=== PATIENT | female | born 1930 | race Hispanic/Latino ===

== ENCOUNTER 2017-06-23 14:04 | Outpatient (CLI) | payer MEDICARE, OTHER | END 2017-06-23 14:05 | disposition home or self-care (01) | LOC: BICRAD 14:04 | PROVIDERS: ATTEND Specialist | DX: S89.92XA Unspecified injury of left lower leg, initial encounter (principal); M17.12 Unilateral primary osteoarthritis, left knee; M77.32 Calcaneal spur, left foot; I70.0 Atherosclerosis of aorta ==

== ENCOUNTER 2017-07-13 13:20 | Inpatient (IN) | payer MEDICARE, OTHER ==
[2017-07-13] MEDS ORDERED: Dextrose 5% in Water 1,000 ML IV PRN (13:54)
[2017-07-13] MEDS ORDERED: Dextrose 50% Abboject 50 ML SYRINGE IVP PRN (13:54)
--- NOTE | 2017-07-13 14:07 | HP ---
DATE OF ADMISSION: 07/13/2017 REASON FOR ADMISSION: Failed outpatient antibiotic for left lower extremity cellulitis. HISTORY OF PRESENT ILLNESS: This is a pleasant elderly female with a history of multiple medical pro blems to include hypertension, hyperlipidemia, and diabetes who presented several weeks ago with left lower extremity cellulitis. She was given 2 different rounds of antibiotics without improvement and therefore she is being admitted to the hospital for IV antibiotic. The patient denies any chest, ar m or back pain. She also denies any PND, orthopnea or palpitations. PAST MEDICAL HISTORY: 1. Hypertension. 2. Hyperlipidemia. 3. Diabetes. 4. She does have a history of a myocardial infarction roughly 5 years ago. PAST SURGICAL HISTORY: 1. History of section. 2. History of hysterectomy in 1962. ALLERGIES: None. MEDICATIONS: 1. Hydrochlorothiazide 25 mg every day. 2. Ramipril 10 mg every day. 3. Coreg 12.5 mg b.i.d. 4. Zetia 10 mg every day. 5. Hydralazine 25 mg t.i.d. 6. Sertraline 50 mg every night. 7. Atorvastatin 80 mg every night. 8. Lantus 30 units daily. 9. 70/30 20 units in the morning and then 70/30 15 units at p.m. FAMILY HISTORY: Noncontributory. SOCIAL HISTORY: She does not smoke or drink alcohol. REVIEW OF SYSTEMS: GENERAL: Admits to weakness and fatigue, no fever or chills. HEENT: No diplopia or amaurosis fugax. Denies sore throat or hoarseness.. CARDIOVASCULAR: No chest, arm or back pain. PULMONARY: No PE, cough, hemoptysis. GASTROINTESTINAL: No GI bleed, constipation, diarrhea. GENITOURINARY: No dysuria, nocturia, oliguria, polyuria. ENDOCRINE: No polyphagia, polydipsia or heat or cold intolerance. MUSCULOSKELETAL: Admits to arthralgias. No lupus or myopathy. NEURO: No history of TIA or seizure. All systems are negative. PHYSICAL EXAMINATION: GENERAL: Pleasant female who appears to be in no acute distress. VITAL SIGNS: Her blood pressure is 128/70, pulse 80, respirations 18, she is afebrile. NECK: Supple with no increased JVP or carotid bruit. Carotid had good upstroke, no thyromegaly. COR: Regular rate and rhythm. CHEST: Symmetrical. Clear to auscultation and percussion. ABDOMEN: Soft, nontender with normoactive bowel sounds. There is no bruit or organomegaly. EXTREMITIES: Left lower extremity is red, it is swollen. It has excoriation on it, it has got water blisters. She had 1-2+ edema. She had palpable pedal pulses. SKIN: There is no evidence of ulcer, lesion or rash. NEUROLOGIC: She is awake, alert, and oriented to person, place, and time. ASSESSMENT: 1. Left lower extremity cellulitis. 2. Rule out deep venous thrombosis. 3. Hypertension. 4. Hyperlipidemia. 5. Diabetes. 6. Depression. PLAN: 1. The patient will be admitted where IV medication will be initiated. 2. We will resume home medications. 3. We will get Wound Care to see the patient in consultation. 4. We will check a lower extremity venous Doppler. 5. We will check a wound culture CLIN APPLICATION SPECIALIST. The patient verbalized understanding. All questions answered to her satisfaction.
[2017-07-13 14:11] LABS: #Eosinphils 0.1 thou/uL (0.0-0.7); #Lymphocytes 1.7 thou/uL (1.20-3.40); #Monocytes 0.5 thou/uL (0.11-0.59); #Neutrophils 3.8 thou/uL (1.40-6.50); %Basophils 0.1 % (0.0-1.0); %Eosinophils 1.8 % (0.0-10.0); %Lymphocytes 28.1 % (21.0-51.0); %Monocytes 8.1 % (0.0-10.0); Hemoglobin 11.1 g/dL (12.0-16.0); Mean Corpuscular Hemoglobin 27.5 pg (27.0-31.0); Mean Corpuscular Volume 88.7 fl (81.0-99.0); Platelet Count 168 thou/uL (130-400); RBC Distribution Width 13.7 % (11.5-14.5); Red Blood Cell (RBC) Count 4.04 mill/uL (4.20-5.40); White Blood Cell (WBC) Count 6.1 thou/uL (4.8-10.8)
[2017-07-13 14:14] VITALS: BMI 29.4
[2017-07-13 14:17] LABS: Hemoglobin A1c 6.8 % (4.0-6.0)
[2017-07-13 14:34] LABS: ALT (SGPT) 30 U/L (8-55); AST (SGOT) 22 U/L (5-34); Albumin 3.3 g/dL (3.4-4.8); Alkaline Phosphatase 90 U/L (40-150); Anion Gap 8 mmol/L (10-20); BUN (Urea Nitrogen) 26 mg/dL (9.8-20.1); Bilirubin, Total 0.4 mg/dL (0.2-1.2); Calc. Creatinine Clearance 51 mL/min (70-130); Calcium 8.9 mg/dL (7.8-10.44); Carbon Dioxide 27 mmol/L (23-31); Chloride 111 mmol/L (98-107); Estimated GFR-MDRD 60; Globulin 2.5 g/dL (2.4-3.5); Glucose 248 mg/dL (83-110); Potassium 4.6 mmol/L (3.5-5.1); Protein, Total 5.8 g/dL (6.0-8.3); Sodium 141 mmol/L (136-145)
[2017-07-13] MEDS ORDERED: Prevnar 13-Val Conj/PF 0.5 ML SYRINGE IM ONE (14:45)
[2017-07-13] MEDS: Cefepime 2 GM, Syringe 2.5 ML in Sodium Chloride 0.9% 10 ML SLOW IVP SCH (15:11)
--- NOTE | 2017-07-13 16:01 | ULT ---
EXAM: LEFT LOWER EXTREMITY VENOUS ULTRASOUND WITH DOPPLER 07/13/17 HISTORY: Left lower extremity edema and pain. COMPARISON: None. TECHNIQUE: Reid scale, color flow, doppler imaging, with spectral waveform analysis performed in the left lower extremity venous system. FINDINGS: There is compressibility, presence of flow and augmentation in the common femoral vein, femoral vein and popliteal vein. There is flow in the greater saphenous vein, profunda vein, and posterior tibial vein. IMPRESSION: No evidence or thrombus in the left lower extremity deep venous system. POS: BINTA
[2017-07-13] MEDS: Insulin Regular 300 UNITS/3 ML VIAL SC PRN (16:44)
[2017-07-13] MEDS ORDERED: Ezetimibe 10 MG TAB PO SCH (21:00)
[2017-07-13] MEDS ORDERED: Carvedilol 6.25 MG TAB PO SCH (21:00)
[2017-07-13] MEDS: Insulin NPH/Reg Insulin Hm 300 UNITS/3 ML VIAL SC SCH (21:24)
[2017-07-14] MEDS: Cefepime 2 GM, Syringe 2.5 ML in Sodium Chloride 0.9% 10 ML SLOW IVP SCH ×2 (01:30→15:06)
[2017-07-14] MEDS: hydrALAZINE 25 MG TAB PO SCH ×3 (08:47→20:48)
[2017-07-14] MEDS: Carvedilol 25 MG TAB PO SCH ×2 (08:47→20:48)
[2017-07-14] MEDS: Hydrochlorothiazide 25 MG TAB PO SCH (08:47)
[2017-07-14] MEDS: Ramipril 5 MG CAP PO SCH (08:48)
[2017-07-14] MEDS: Enoxaparin Sodium 30 MG/0.3 ML SYRINGE SC SCH (08:49)
[2017-07-14] MEDS: Insulin NPH/Reg Insulin Hm 300 UNITS/3 ML VIAL SC SCH ×2 (10:18→21:00)
[2017-07-14] MEDS ORDERED: Diphenoxylate HCl/Atropine Tablet PO PRN (11:37)
[2017-07-14] MEDS ORDERED: Diphenoxylate HCl/Atropine Tablet PO SCH (11:45)
[2017-07-14] MEDS: Simvastatin 5 MG TAB PO SCH (20:48)
[2017-07-15] MEDS: Cefepime 2 GM, Syringe 2.5 ML in Sodium Chloride 0.9% 10 ML SLOW IVP SCH (03:19)
[2017-07-15 04:57] LABS: #Eosinphils 0.2 thou/uL (0.0-0.7); #Lymphocytes 1.7 thou/uL (1.20-3.40); #Monocytes 0.6 thou/uL (0.11-0.59); #Neutrophils 2.6 thou/uL (1.40-6.50); %Basophils 0.8 % (0.0-1.0); %Eosinophils 4.5 % (0.0-10.0); %Lymphocytes 33.2 % (21.0-51.0); %Monocytes 10.7 % (0.0-10.0); %Neutrophils 50.8 % (42.0-75.0); Hemoglobin 10.9 g/dL (12.0-16.0); Mean Corpuscular HGB CONC 31.3 g/dL (32.0-36.0); Mean Corpuscular Hemoglobin 27.2 pg (27.0-31.0); Mean Corpuscular Volume 86.8 fl (81.0-99.0); Mean Platelet Volume 9.1 fL (7.4-10.4); Platelet Count 145 thou/uL (130-400); RBC Distribution Width 13.8 % (11.5-14.5); Red Blood Cell (RBC) Count 4.02 mill/uL (4.20-5.40); White Blood Cell (WBC) Count 5.2 thou/uL (4.8-10.8)
[2017-07-15 05:15] LABS: Anion Gap 5 mmol/L (10-20); BUN (Urea Nitrogen) 23 mg/dL (9.8-20.1); Calc. Creatinine Clearance 57 mL/min (70-130); Calcium 8.9 mg/dL (7.8-10.44); Carbon Dioxide 33 mmol/L (23-31); Cardiac Risk 2.5 (Less than 4.5); Chloride 107 mmol/L (98-107); Cholesterol 110 mg/dl (< 200 Desired); Estimated GFR-MDRD 69; Glucose 155 mg/dL (83-110); HDL Cholesterol 44 mg/dL (>60 Neg Risk); LDL Cholesterol, Calculated 52 mg/dL; Potassium 4.5 mmol/L (3.5-5.1); Sodium 140 mmol/L (136-145); Triglycerides 72 mg/dL (Less than 150)
[2017-07-15] MEDS: Hydrochlorothiazide 25 MG TAB PO SCH (08:29)
[2017-07-15] MEDS: Enoxaparin Sodium 30 MG/0.3 ML SYRINGE SC SCH (08:29)
[2017-07-15] MEDS: Carvedilol 25 MG TAB PO SCH ×2 (08:29→19:50)
[2017-07-15] MEDS: hydrALAZINE 25 MG TAB PO SCH ×3 (08:29→19:49)
[2017-07-15] MEDS: Ramipril 5 MG CAP PO SCH (08:30)
--- NOTE | 2017-07-15 08:39 | PRG ---
DATE OF SERVICE: 07/15/2017 Tia Matthews, GINNY-Chana dictating for Dr. Sancho Elmore. SUBJECTIVE: The patient had a good night. Her diarrhea has slowed down a little bit. Her wound cul ture is pending. Her C. diff is negative. Upon evaluation, she is awake, alert, oriented to person, place, and time. OBJECTIVE: VITAL SIGNS: Her blood pressure is high at 180 this morning over 65, pulse 60, respirations 18. She is afebrile. NECK: Supple. No increased JVP or carotid bruit. Carotid had good upstroke with no thyromegaly. COR: Regular rate and rhythm. CHEST: Symmetrical. Clear to auscultation and percussion. ABDOMEN: Soft and nontender with normoactive bowel sounds. No bruit or organomegaly. EXTREMITIES: Left lower extremity is less red and less swollen. She had palpable pedal pulses. SKIN: There is no evidence of ulcers, lesions, or rash. NEUROLOGIC: She is awake, alert, and oriented to person, place, and time. IMPRESSION: 1. Lower extremity cellulitis. 2. Hypertension. 3. Diabetes. 4. Multiple medical problems. PLAN: We will go ahead and stop her IV antibiotics and place her on Bactrim-DS b.i.d. and we will wa it for the culture and hopefully if all are okay we will send home tomorrow. The patient verbalized understanding and all questions answered to her satisfaction.
[2017-07-15] MEDS: Sulfameth/Trimethoprim DS 800-160mg TAB PO SCH ×2 (09:52→19:50)
[2017-07-15] MEDS: Insulin NPH/Reg Insulin Hm 300 UNITS/3 ML VIAL SC SCH ×2 (09:52→21:46)
[2017-07-15] MEDS: Insulin Regular 300 UNITS/3 ML VIAL SC PRN (12:41)
[2017-07-15] MEDS: Simvastatin 5 MG TAB PO SCH (19:50)
[2017-07-16] MEDS ORDERED: cloNIDine 0.1 MG TAB PO PRN (01:10)
[2017-07-16] MEDS ORDERED: cloNIDine 0.1 MG TAB PO SCH (01:15)
[2017-07-16 04:18] VITALS: TEMP 98.1
[2017-07-16] MEDS: Insulin Regular 300 UNITS/3 ML VIAL SC PRN (05:59)
[2017-07-16 08:17] VITALS: BP 164/69
[2017-07-16] MEDS: Hydrochlorothiazide 25 MG TAB PO SCH (09:28)
[2017-07-16] MEDS: Carvedilol 25 MG TAB PO SCH (09:28)
[2017-07-16] MEDS: Sulfameth/Trimethoprim DS 800-160mg TAB PO SCH (09:28)
[2017-07-16] MEDS: hydrALAZINE 25 MG TAB PO SCH (09:28)
[2017-07-16] MEDS: Ramipril 5 MG CAP PO SCH (09:28)
[2017-07-16] MEDS: Enoxaparin Sodium 30 MG/0.3 ML SYRINGE SC SCH (09:28)
[2017-07-16] MEDS: Insulin NPH/Reg Insulin Hm 300 UNITS/3 ML VIAL SC SCH (09:29)
--- NOTE | 2017-07-16 13:11 | DIS ---
FINAL DIAGNOSES: 1. Lower extremity cellulitis. 2. Diarrhea. 3. Hypertension. 4. Hyperlipidemia. COMPLICATIONS: None. PROCEDURES: None. CONSULTANTS: None. HOSPITAL COURSE: This is a pleasant female who was seen in the office after she failed 2 rounds of a ntibiotics for lower extremity cellulitis. She was admitted to the hospital where IV antibiotics wer e initiated. She did have some diarrhea. Her medications were adjusted accordingly. A stool C. dif f was obtained which was unremarkable. She had a left lower extremity venous Doppler that wound up b eing normal as well. Her blood sugar remained good during the hospitalization; however, her blood pr essure was high at times and her medication again had to be readjusted. Her CBC was normal. Her CMP showed a slightly elevated BUN at 23. Her creatinine was 0.79. Her blood sugar again was 129-148. Her lipid profile was excellent with a triglyceride 72, cholesterol 110, LDL 52 and HDL 44. The pat ient progressed throughout the hospitalization. She had Wound Care to see the patient in consultatio n as well. Her wound improved. Her IV antibiotics were stopped and she was started on antibiotics b y mouth. It was felt she could go home on 07/16/2017. She was discharged home in stable condition. DIET: 1800 ADA diet. ACTIVITIES: As tolerated by the patient. DISCHARGE MEDICATIONS: 1. Bactrim-DS b.i.d. 2. Coreg 25 mg b.i.d. 3. Zocor was reduced to 5 mg at bedtime. 4. Vitamin D 50,000 unit once a week. 5. Ezetimibe 10 mg every day. 6. Apresoline 25 mg 4 times a day 7. Hydrochlorothiazide 25 mg every day. 8. Insulin Humulin 70/30 15 units in the evening and then 20 units in the morning. 9. Ramipril 10 mg daily. 10. Sertraline 50 mg every day. FOLLOWUP: She will follow up with Tia in 1 week or prior to that if she has any complication. All questions answered to the patient's satisfaction. Time spent with this patient after reviewing the chart and dictating was 30 minutes.
== END 2017-07-16 10:23 | disposition home health service (06) | DRG 603 ==
LOC: 2SW 13:20 → OBSVTOIN 07-14 14:53 → EEVIPCON 07-14 14:53 → T4-B 07-14 17:44
PROVIDERS: ADMIT Specialist; ATTEND Specialist
DX: L03.116 Cellulitis of left lower limb (principal); E11.65 Type 2 diabetes mellitus with hyperglycemia; E78.5 Hyperlipidemia, unspecified; I10 Essential (primary) hypertension; I25.2 Old myocardial infarction; Z79.4 Long term (current) use of insulin; F32.9 Major depressive disorder, single episode, unspecified
CPT/HCPCS: 36415; 36416; 80048; 80053; 80061; 83036; 85025; 87045; 87046; 87070; 87205; 87328; 87329; 87449; 87899; 90471; 90670; A4216; G0009; J0692; J1650; J1815

== ENCOUNTER 2017-08-20 15:29 | Outpatient (CLI) | payer MEDICARE, OTHER ==
--- NOTE | 2017-08-20 17:01 | ULT ---
RIGHT INGUINAL REGION SOFT TISSUE ULTRASOUND: 08/20/17 INDICATION: Groin hematoma. History of recent catheterization. FINDINGS: There is an abnormal ovoid low echogenicity focus of the right inguinal region, with a diameter sligh tly greater than 6 cm in greatest length. No significant interval flow. This is immediately adjacent traversing vasculature of the right inguinal region. A direct communication with the adjacent vascul ature is not delineated on the basis of this exam. Advance vasculature also demonstrates reduced flow which could relate to component of adjacent vascular thrombosis. IMPRESSION: There is an ovoid, mixed echogenicity, hypoechoic structure at the right inguinal region without sign ificant internal flow. This does reside adjacent to traversing vasculature. Primary considerations wo uld include hematoma or thrombosed pseudoaneurysm. Adjacent, traversing vasculature also reveals dimi nished flow which may relate to adjacent vascular thrombosis. Recommend clinical correlation, and bertha ging followup may also be obtained for continued assessment. POS: BINTA
== END 2017-08-20 15:30 | disposition home or self-care (01) ==
LOC: ULT 15:29
PROVIDERS: ATTEND Internal Medicine Cardiovascular Disease
DX: M79.81 Nontraumatic hematoma of soft tissue (principal)
CPT/HCPCS: 76999

== ENCOUNTER 2019-03-13 13:39 | Emergency (ER) | payer MEDICARE, OTHER ==
[2019-03-13 15:45] LABS: #Eosinphils 0.2 thou/uL (0.0-0.7); #Lymphocytes 1.4 thou/uL (1.20-3.40); #Monocytes 0.6 thou/uL (0.11-0.59); #Neutrophils 4.4 thou/uL (1.40-6.50); %Basophils 0.6 % (0.0-1.0); %Eosinophils 3.2 % (0.0-10.0); %Lymphocytes 20.9 % (21.0-51.0); %Neutrophils 66.3 % (42.0-75.0); Hemoglobin 11.2 g/dL (12.0-16.0); Mean Corpuscular HGB CONC 32.6 g/dL (32.0-36.0); Mean Corpuscular Hemoglobin 29.1 pg (27.0-31.0); Mean Corpuscular Volume 89.1 fL (78.0-98.0); Mean Platelet Volume 10.1 fL (7.4-10.4); Platelet Count 172 thou/uL (130-400); RBC Distribution Width 12.7 % (11.5-14.5); Red Blood Cell (RBC) Count 3.86 mill/uL (4.20-5.40); White Blood Cell (WBC) Count 6.6 thou/uL (4.8-10.8)
[2019-03-13 16:10] LABS: ALT (SGPT) 13 U/L (8-55); AST (SGOT) 15 U/L (5-34); Albumin 3.6 g/dL (3.4-4.8); Alkaline Phosphatase 129 U/L (40-110); Anion Gap 11 mmol/L (10-20); BUN (Urea Nitrogen) 21 mg/dL (9.8-20.1); Bilirubin, Total 0.7 mg/dL (0.2-1.2); Calc. Creatinine Clearance 0 mL/min (70-130); Calcium 8.9 mg/dL (7.8-10.44); Carbon Dioxide 24 mmol/L (23-31); Chloride 108 mmol/L (98-107); Estimated GFR-MDRD 53; Globulin 2.8 g/dL (2.4-3.5); Glucose 309 mg/dL (83-110); Potassium 4.4 mmol/L (3.5-5.1); Protein, Total 6.4 g/dL (6.0-8.3); Sodium 139 mmol/L (136-145)
--- NOTE | 2019-03-13 16:19 | RAD ---
Chest one view HISTORY: Chest pain. Leg swelling. COMPARISON: 07/29/2011. FINDINGS: Cardiac silhouette is magnified and enlarged. Pulmonary vasculature is slightly engorged wi th mild patchy bibasilar infiltrates and peripheral interstitial thickening. Possible mild atelectasis at the lateral aspect of the superior segment left lower lobe. Mediastinum is midline with postoperative changes and aortic calcification. No lobar consolidation or evidence of pneumothorax. equipment monitor phototypesetting leads overlie the chest. IMPRESSION: Cardiomegaly. Mild pulmonary vascular congestion. Mild linear scarring/atelectasis within the left lung.
[2019-03-13] MEDS ORDERED: Labetalol HCl 100 MG/20 ML VIAL ONE (16:23)
[2019-03-13] MEDS ORDERED: Insulin Regular 300 UNITS/3 ML VIAL ONE (18:17)
[2019-03-13] MEDS ORDERED: Furosemide 40 MG/4 ML VIAL ONE (18:17)
[2019-03-13] MEDS ORDERED: hydrALAZINE 25 MG TAB ONE (18:17)
--- NOTE | 2019-03-13 19:36 | ULT ---
EXAM: LEFT LOWER EXTREMITY VENOUS ULTRASOUND WITH DOPPLER: COMPARISON: 07/13/2017 HISTORY: Edema. TECHNIQUE: Grayscale, color flow, Doppler imaging and spectral waveform analysis performed left lower extremity FINDINGS: Limited evaluation of the common femoral vein and greater saphenous vein due to edema. There is compressibility, presence of flow and augmentation in the femoral vein and popliteal vein. T here does appear to be flow and augmentation in the common femoral vein. There is flow in the greater saphenous vein and profunda femoral vein. Flow in the posterior tibial vein. There is evidenc e of edema in the distal left lower extremity. IMPRESSION: 1. Limited evaluation. No definite deep vein thrombus. 2. Left lower extremity edema Transcribed Date/Time: 03/13/2019 8:00 PM
== END 2019-03-13 21:25 | disposition home or self-care (01) ==
LOC: ERS 13:39
DX: R60.0 Localized edema (principal); R06.02 Shortness of breath; I25.2 Old myocardial infarction; E11.9 Type 2 diabetes mellitus without complications; E78.5 Hyperlipidemia, unspecified; I10 Essential (primary) hypertension; Z79.82 Long term (current) use of aspirin; Z79.4 Long term (current) use of insulin; Z79.899 Other long term (current) drug therapy
CPT/HCPCS: 36415; 36416; 71045; 80053; 83880; 84484; 85025; 93005; 96374; 96375; J1815; J1940

== ENCOUNTER 2019-11-13 11:34 | Outpatient (CLI) | payer MEDICARE ==
--- NOTE | 2019-11-13 13:26 | ULT ---
ULTRASOUND ABDOMEN LIMITED: (RIGHT UPPER QUADRANT) DATE: 11/13/2019 HISTORY: 89-year-old female with right upper quadrant abdominal pain. At 1:23 PM 11/13/2019, Dr. Sheppard discussed the findings and recommendation by telephone with Dr. Sancho Elmore. FINDINGS: There is an approximately 2 x 1.5 x 2.5 cm moderately hypoechoic mass with irregular margins in the r egion of the pancreatic head. The common duct is dilated to caliber of 10 mm. No evidence of dilation of pancreatic duct. Hepatic size and echogenicity are normal. No hydronephrosis of right kidney. Gallbladder is not visualized, presumably surgically absent. 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 Recommend CT of abdomen with contr ast.
== END 2019-11-13 11:35 | disposition home or self-care (01) ==
LOC: BICULT 11:34
PROVIDERS: ATTEND Specialist
DX: R10.11 Right upper quadrant pain (principal); E11.65 Type 2 diabetes mellitus with hyperglycemia; I10 Essential (primary) hypertension
CPT/HCPCS: 36415; 76705; 80053; 80061; 82306; 83036; 84443; 85025

== ENCOUNTER 2019-12-20 10:20 | Outpatient (CLI) | payer MEDICARE ==
--- NOTE | 2019-12-20 13:30 | CT ---
Exam: Abdomen CT with and without contrast HISTORY: Abnormal ultrasound. Evaluate for a mass of the head of the pancreas. Epigastric pain. COMPARISON: None CORRELATION: Gallbladder ultrasound 11/13/2019 TECHNIQUE: Abdomen and pelvic CT is performed with and without contrast following urogram protocol. C oronal reformatted images are submitted for interpretation FINDINGS: Lung bases: Minimal scarring and atelectasis Heart: Normal heart size. No significant pericardial fluid. There are coronary calcifications. Aorta: Atherosclerosis. Mild luminal narrowing secondary to atherosclerotic disease. No aneurysm, dis section or periaortic fat stranding Liver: Appropriate enhancement. No enhancing masses. Spleen: Well-circumscribed hypodensities in the spleen, measuring 1.0 x 1.0 cm and 1.1 x 0.7 cm. Sugg estive subtle enhancement may represent small slightly complex splenic cysts versus splenic hemangiomas. Pancreas: Three-phase imaging of the pancreas does not demonstrate any obvious intraparenchymal solid or cystic masses. Adrenal glands: Symmetric enhancement Lymph nodes: No gastrohepatic, retrocrural or periportal lymphadenopathy Portal vein: Patent Gallbladder: Surgically absent gallbladder. Visualized common bile duct does not demonstrate any obvi ous abrupt change in the caliber of the lumen. No CT evidence of choledocholithiasis Kidneys: Noncontrast: Bilaterally no evidence of hydronephrosis or perinephric fat stranding Contrast: Symmetric enhancement on the arterial phase images. Delayed: Symmetric excretion and decompressed intrarenal collecting and extrarenal collecting systems . Note, neither ureter is completely visualized Mesentery: No mass, nephropathy, free air or free fluid Alimentary canal: Limited evaluation. Visualized alimentary canal has a normal appearance. No evidenc e of a small bowel obstruction. IMPRESSION: No evidence of a solid or cystic mass corresponding to the finding on recent ultrasound. There does n ot appear to be obvious mass at the head of the pancreas or the adjacent soft tissues. Transcribed Date/Time: 12/20/2019 1:37 PM
== END 2019-12-20 10:21 | disposition home or self-care (01) ==
LOC: SCSCT 10:20
PROVIDERS: ATTEND Specialist
DX: D49.0 Neoplasm of unspecified behavior of digestive system (principal)
CPT/HCPCS: 74170; 82565

== ENCOUNTER 2020-04-13 17:19 | Inpatient (IN) | payer MEDICARE ==
[2020-04-13 18:06] LABS: #Eosinphils 0.1 thou/uL (0.0-0.7); #Lymphocytes 1.3 thou/uL (1.20-3.40); #Monocytes 0.6 thou/uL (0.11-0.59); #Neutrophils 4.2 thou/uL (1.40-6.50); %Basophils 0.1 % (0.0-1.0); %Eosinophils 0.8 % (0.0-10.0); %Lymphocytes 20.7 % (21.0-51.0); %Monocytes 9.9 % (0.0-10.0); %Neutrophils 68.4 % (42.0-75.0); Hemoglobin 10.6 g/dL (12.0-16.0); Mean Corpuscular HGB CONC 31.7 g/dL (32.0-36.0); Mean Corpuscular Volume 85.1 fL (78.0-98.0); Mean Platelet Volume 9.4 fL (7.4-10.4); Platelet Count 259 thou/uL (130-400); RBC Distribution Width 13.2 % (11.5-14.5); Red Blood Cell (RBC) Count 3.92 mill/uL (4.20-5.40); White Blood Cell (WBC) Count 6.2 thou/uL (4.8-10.8)
[2020-04-13 18:27] LABS: ALT (SGPT) 13 U/L (8-55); AST (SGOT) 13 U/L (5-34); Alkaline Phosphatase 81 U/L (40-110); Anion Gap 13 mmol/L (10-20); BUN (Urea Nitrogen) 22 mg/dL (9.8-20.1); Bilirubin, Total 0.5 mg/dL (0.2-1.2); Calc. Creatinine Clearance 0 mL/min (70-130); Calcium 8.2 mg/dL (7.8-10.44); Carbon Dioxide 23 mmol/L (23-31); Chloride 111 mmol/L (98-107); Globulin 3.1 g/dL (2.4-3.5); Glucose 222 mg/dL (83-110); Potassium 3.5 mmol/L (3.5-5.1); Protein, Total 6.1 g/dL (6.0-8.3); Sodium 143 mmol/L (136-145)
--- NOTE | 2020-04-13 18:28 | RAD ---
EXAM: CHEST ONE VIEW HISTORY: Generalized weakness and stumbling gait. Intermittent left arm and neck pain. COMPARISON: 03/13/2019 FINDINGS: Cardiac silhouette is magnified by projection but does appear enlarged. Postoperative changes related to median sternotomy and likely CABG are again seen. Patchy parenchymal airspace opacities are seen in the right midlung zone and at each lung base. No pleural effusion is present. Vascular calcif ications are again seen in thoracic aorta. IMPRESSION: Patchy airspace opacities at each lung base and right midlung zone worrisome for multifocal pneumonia . Viral pneumonitis such as Covid 19 in the correct clinical scenario is a consideration.
[2020-04-13 18:49] LABS: CKMB 1.7 ng/mL (0-6.6)
[2020-04-13 19:26] LABS: Bacteria/HPF 4+ HPF (None Seen); Bilirubin Negative (Negative); Blood, Urine Negative (Negative); Clarity Turbid (Clear); Glucose, Urine (Dipstick) 30 mg/dL (Negative); Ketone, Urine Negative (Negative); Leukocyte 25 Leu/uL (Negative); Nitrite Negative (Negative); Protein, Urine (Dipstick) 100 mg/dL (Neg-Trace); RBC/HPF 0-3 HPF (0-3); Specific Gravity, Urine 1.013 (1.002-1.036); Squamous Epithelial 0-3 HPF (0-3); Urobilinogen Normal mg/dL (Less than 2); pH, Urine 5.5 (5.0-9.0)
[2020-04-13] MEDS ORDERED: cloNIDine 0.1 MG TAB ONE (19:27)
[2020-04-13] MEDS ORDERED: Aspirin Chewable 81 MG TAB ONE (19:27)
[2020-04-13] MEDS ORDERED: Acetaminophen/Codeine 30-300mg Tablet ONE (19:27)
--- NOTE | 2020-04-13 20:31 | ULT ---
EXAM: Left lower extremity venous Doppler HISTORY: Left lower extremity pain and swelling FINDINGS: Grayscale, color-flow, Doppler evaluation, spectral analysis of the left lower extremity venous struc tures is performed with 2-D imaging. The left common femoral, superficial femoral, popliteal, posterior tibial, proximal greater saphenous and profunda femoral veins are imaged. There is normal luminal compressibility, flow, and augmentation in the visualized deep venous structu res of the left lower extremity. IMPRESSION: No evidence of a deep vein thrombosis in the visualized deep venous structures left lower extremity.
[2020-04-13] MEDS ORDERED: Acetaminophen 325 MG TAB PO PRN (20:46)
[2020-04-13] MEDS ORDERED: Dextrose 50% Abboject 50 ML SYRINGE SLOW IVP PRN (20:50)
[2020-04-13] MEDS ORDERED: HumaLOG 300 UNITS/3 ML VIAL SC PRN (20:50)
[2020-04-13] MEDS ORDERED: Dextrose 5% in Water 1,000 ML IV PRN (20:50)
--- NOTE | 2020-04-13 20:52 | PDOC.HHP ---
Hospitalist HPI - History of Present Illness weakness History of Present Illness: This is a 89-year-old female patient with a history of coronary disease status post CABG, hypertension, diabetes mellitus who presents with ongoing weakness and chest discomfort for the past couple of weeks. Patient was in the room with her [id number] who provided most of the history. She was in the usual state of health when about a week to 2 ago she had a fall, likely mechanical. After that incident she has been having generalized weakness. Her [id number] notes that she noticed she had a bump on her head after the incident. About a week ago she did complain of pain in her neck with radiating down her a rm mainly on the left side with worsening weakness and chest discomfort. She denied any cough or wheezing however had intermittent slight shortness of breath. She also notes having swelling of her feet bilaterally but mainly on the left side. No fevers nausea vomiting diarrhea constipation. She notes numbness mainly on the left side of with pain on both sides of her neck. No focal motor deficits. At baseline she walks with a walker Decided to come to the ED for further evaluation. At presentation her BP was 183/75, pulse 71, respiratory rate 20 and saturating 98 on room air. Labs showed initial troponin of 0.039, no concerning is ST segment changes on EKG. UA not suggestive of UTI. BMP essentially within normal limits. Chest x-ray showed patchy airspace opacities at each lung base and right mid zone worrisome for interstitial pneumonia. Covid test is pending Hospitalist ROS - Review of Systems Constitutional: reports: weakness. denies: fever, chills, sweats Respiratory: reports: shortness of breath, SOB with excertion. denies: cough, dry, hemoptysis Gastrointestinal: denies: nausea, vomiting, abdominal pain, diarrhea Genitourinary: denies: dysuria, frequency, incontinence, hematuria Musculoskeletal: reports: neck pain, shoulder pain, arm pain Neurological: reports: numbness. denies: weakness, incoordination, change in speech All other systems reviewed; all pertinent +/- noted in HPI/Subj - Medication Medications: Medications: Currently refer to ambulatory order list Allergies: No known drug allergies Hospitalist History - Past Medical History Cardiac: reports: CAD, HTN Endocrine: reports: Diabetes - Past Surgical History Past Surgical History: reports: CABG - Family History Family History: reports: diabetes mellitus - Social History Smoking Status: Never smoker Alcohol: reports: None Living Situation: With Family Activity level: uses cane/walker - Exam General Appearance: awake alert General - other findings: No acute distress Eye: PERRL, anicteric sclera ENT: normocephalic atraumatic Neck: supple, symmetric, no JVD, no thyromegaly Heart: RRR, no murmur, no gallops, no rubs Respiratory: CTAB, no wheezes, no rales, no ronchi Gastrointestinal: soft, non-tender, non-distended, normal bowel sounds Extremities: no cyanosis, no clubbing, no edema Extremities - other findings: Left leg swelling compared to right Neurological: cranial nerve grossly intact, no weakness Musculoskeletal: normal tone, no muscle wasting Psychiatric: normal affect, normal behavior, A&O x 3 Hospitalist Results - Labs Result Diagrams: 04/14/20 07:19 04/14/20 07:19 Lab results: WBC 6.2 thou/uL (4.8-10.8) 04/13/20 17:53 Hgb 10.6 g/dL (12.0-16.0) L 04/13/20 17:53 Hct 33.3 % (36.0-47.0) L 04/13/20 17:53 MCV 85.1 fL (78.0-98.0) 04/13/20 17:53 Plt Count 259 thou/uL (130-400) 04/13/20 17:53 Neutrophils % 68.4 % (42.0-75.0) 04/13/20 17:53 Sodium 143 mmol/L (136-145) 04/13/20 17:53 Potassium 3.5 mmol/L (3.5-5.1) 04/13/20 17:53 Chloride 111 mmol/L (98-107) H 04/13/20 17:53 Carbon Dioxide 23 mmol/L (23-31) 04/13/20 17:53 BUN 22 mg/dL (9.8-20.1) H 04/13/20 17:53 Creatinine 1.10 mg/dL (0.6-1.1) 04/13/20 17:53 Glucose 222 mg/dL (83-110) H 04/13/20 17:53 Calcium 8.2 mg/dL (7.8-10.44) 04/13/20 17:53 Total Bilirubin 0.5 mg/dL (0.2-1.2) 04/13/20 17:53 AST 13 U/L (5-34) 04/13/20 17:53 ALT 13 U/L (8-55) 04/13/20 17:53 Alkaline Phosphatase 81 U/L (40-110) 04/13/20 17:53 CK-MB (CK-2) 1.7 ng/mL (0-6.6) 04/13/20 17:53 Troponin I 0.039 ng/mL (< 0.028) H 04/13/20 17:53 Serum Total Protein 6.1 g/dL (6.0-8.3) 04/13/20 17:53 Albumin 3.0 g/dL (3.4-4.8) L 04/13/20 17:53 Urine Ketones Negative mg/dL (Negative) 04/13/20 19:05 Urine Blood Negative (Negative) 04/13/20 19:05 Urine Nitrite Negative (Negative) 04/13/20 19:05 Ur Leukocyte Esterase 25 Triston/uL (Negative) A 04/13/20 19:05 Urine RBC 0-3 HPF (0-3) 04/13/20 19:05 Urine WBC 7-10 HPF (0-3) A 04/13/20 19:05 Ur Squamous Epith Cells 0-3 HPF (0-3) 04/13/20 19:05 Urine Bacteria 4+ HPF (None Seen) A 04/13/20 19:05 Hospitalist H&P A/P - Plan Plan: This is an 89-year-old male patient with a history of coronary disease status post CABG, diabetes, hypertension presenting with worsening weakness and chest discomfort for the past couple of weeks. Initial evaluation concerning for possible ACS however also concerns for Covid. NSTEMI With chest discomfort with history of diabetes hypertension and CAD status post Elevated troponin initially 0.039we will trend Given aspirincontinue, start Lovenox N.p.o. overnight Cardiology consult in a.m. Hypertensive emergency Systolic blood pressure elevates to over 200 with chest discomfort and elevated troponin Started on clonidine with mild improvement Restart home blood pressure medications Start IV antihypertensive if BP remains elevated Left upper limb numbness Numbness and pain radiating from neck History of recent fallwe will do CT neck and head Recent fall Likely mechanical CT head and neck to rule out any acute events. Fall precautions PT a.m. Monitor on telemetry Diabetes mellitus Start correctional insulin Monitor glucose Coronary disease Resume home medications once verified. CODE STATUSfull code DVT prophylaxisLovenox Dispositionpending improvement
[2020-04-13] MEDS ORDERED: Enoxaparin Sodium 40 MG/0.4 ML SYRINGE SC SCH (21:00)
[2020-04-13] MEDS ORDERED: Simvastatin 5 MG TAB PO SCH (21:00)
[2020-04-13] MEDS ORDERED: Carvedilol 25 MG TAB PO SCH (21:00)
[2020-04-13] MEDS ORDERED: hydrALAZINE 20 MG/ML VIAL SLOW IVP PRN (21:59)
[2020-04-13] MEDS ORDERED: Labetalol HCl 100 MG/20 ML VIAL SLOW IVP PRN (21:59)
[2020-04-13 22:05] LABS: Troponin I 0.051 ng/mL (< 0.028)
[2020-04-13] MEDS ORDERED: Enoxaparin Sodium 30 MG/0.3 ML SYRINGE ONE (22:28)
[2020-04-14 00:35] LABS: Troponin I 0.061 ng/mL (< 0.028)
[2020-04-14 01:56] LABS: SARS-CoV-2 MS2 Positive; SARS-CoV-2 N Gene Positive; SARS-CoV-2 S Gene Positive; SARS-CoV-2 by NAA DETECTED (NotDetected); SARS-CoV-2 orf1ab Positive
[2020-04-14 07:39] LABS: #Eosinphils 0.1 thou/uL (0.0-0.7); #Monocytes 0.5 thou/uL (0.11-0.59); #Neutrophils 3.6 thou/uL (1.40-6.50); %Basophils 0.2 % (0.0-1.0); %Eosinophils 1.3 % (0.0-10.0); %Lymphocytes 18.6 % (21.0-51.0); %Monocytes 9.4 % (0.0-10.0); %Neutrophils 70.5 % (42.0-75.0); Hemoglobin 11.1 g/dL (12.0-16.0); Mean Corpuscular Hemoglobin 27.3 pg (27.0-31.0); Mean Corpuscular Volume 85.2 fL (78.0-98.0); Mean Platelet Volume 9.5 fL (7.4-10.4); Platelet Count 262 thou/uL (130-400); RBC Distribution Width 13.4 % (11.5-14.5); Red Blood Cell (RBC) Count 4.07 mill/uL (4.20-5.40); White Blood Cell (WBC) Count 5.1 thou/uL (4.8-10.8)
--- NOTE | 2020-04-14 07:45 | CT ---
PRELIMINARY REPORT/DIRECT RADIOLOGY/EMERGENCY AFTER HOURS PORCEDURE: Receipt of this report by the clinical staff was confirmed with Tan Chester by Adelfo Talbert Apr 14, 2020 07:31:00 [employer]IL [employer]ISH[employer]ACHINE. Addendum electronically signed by Adelfo Talbert on April 14, 2020 7:32:18 AM SAIL FINISHER MACHINE Addendum: There is some nonspecific nodularity noted in the right lung apex which is probably inflamm atory or postinflammatory in nature. Clinical correlation and follow-up chest imaging of some kind is recommended. Addendum electronically signed by Kvng Spear MD on April 14, 2020 7:22:23 AM SAIL FINISHER MACHINE EXAM: CT Head and Cervical Spine Without IV contrast. CLINICAL HISTORY: Fall 1-2 WEEKS AGO , right arm paresthesia TECHNIQUE: Axial computed tomography images were acquired of the head and the cervical spine without intravenous contrast. Sagittal and coronal reformatted images were obtained of the cervical spine. COMPARISON: None provided. FINDINGS: BRAIN: No acute intraparenchymal hemorrhage. No mass lesion. No CT evidence for acute territorial inf arct. No midline shift or extra-axial collection. Some age-appropriate senescent changes. VENTRICLES No hydrocephalus. ORBITS The orbits are unremarkable. SINUSES AND MASTOIDS The paranasal sinuses and mastoid air cells are clear. SOFT TISSUES No significant facial or scalp soft tissue swelling evident. No radiopaque foreign body is seen. BONES No acute osseous pathology evident. No acute fracture is evident on images of the head or cervi randy spine. DISKS/DEGENERATIVE CHANGES Diffuse spondylotic changes are noted. No ACUTE canal or foraminal compro mise. Posterior cervical spine vertebral body alignment is within normal limits. IMPRESSION: 1. No acute intracranial findings. No acute intracranial injury evident. 2. No cervical spine fracture evident. ELECTRONICALLY SIGNED BY: Kvng Spear MD Apr 14, 2020 6:53:45 AM SAIL FINISHER MACHINE FINAL REPORT CT CERVICAL SPINE NONCONTRAST: DATE: 04/14/2020. TIME: Performed on emergency basis at 0626 hours. HISTORY: Fall. Injury.. FINDINGS: Agree with the addended report by Dr. Spear from direct radiology. There are degenerative changes thro ughout the cervical spine without acute osseous abnormality demonstrated. Old incompletely healed fracture of the posterior aspect of the left second rib is noted. Nodular inf iltrate is partially visualized at the right lung apex and could represent active or residual inflammation or chronic scarring. Correlate with pulmonary symptoms. Transcribed Date/Time: 04/14/2020 8:20 AM
--- NOTE | 2020-04-14 07:47 | CT ---
PRELIMINARY REPORT/DIRECT RADIOLOGY/EMERGENCY AFTER HOURS PROCEDURE: Receipt of this report by the clinical staff was confirmed with Tan Chester by Adelfo Talbert Apr 14, 2020 07:31:00 ROUTE AIDE. Addendum electronically signed by Adelfo Talbert on April 14, 2020 7:32:18 AM ROUTE AIDE. Addendum: There is some nonspecific nodularity noted in the right lung apex whi ch is probably inflammatory or postinflammatory in nature. Clinical correlation and follow-up chest imaging of some kind is recommended. Addendum electronically signed by Kvng Spear MD on 2020 7:22:23 AM ROUTE AIDE EXAM: CT Head and Cervical Spine Without IV contrast. CLINICAL HISTORY: Fall 1-2 WEEKS AGO , right arm paresthesia TECHNIQUE: Axial computed tomography images were acquired of the head and the cervical spine without intravenous contrast. Sagittal and coronal reformatted images were obtained of the cervical spine. COMPARISON: None provided. FINDINGS: BRAIN: No acute intraparenchymal hemorrhage. No mass lesion. No CT evidence for acute territorial inf arct. No midline shift or extra-axial collection. Some age-appropriate senescent changes. VENTRICLES No hydrocephalus. ORBITS The orbits are unremarkable. SINUSES AND MASTOIDS The paranasal sinuses and mastoid air cells are clear. SOFT TISSUES No significant facial or scalp soft tissue swelling evident. No radiopaque foreign body is seen. BONES No acute osseous pathology evident. No acute fracture is evident on images of the head or cervi randy spine. DISKS/DEGENERATIVE CHANGES Diffuse spondylotic changes are noted. No ACUTE canal or foraminal compro mise. Posterior cervical spine vertebral body alignment is within normal limits. IMPRESSION: 1. No acute intracranial findings. No acute intracranial injury evident. 2. No cervical spine fracture evident. ELECTRONICALLY SIGNED BY: Kvng Spear MD Apr 14, 2020 6:53:45 AM ROUTE AIDE FINAL REPORT CT HEAD NONCONTRAST: DATE: 04/14/2020. TIME: Performed on emergency basis at 0627 hours. HISTORY: Fall. Head injury. FINDINGS: I agree with the preliminary report by Dr. Spear from direct radiology. No acute intracranial abnormal ities are demonstrated. 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 Transcribed Date/Time: 04/14/2020 8:24 AM
[2020-04-14 07:49] LABS: Anion Gap 14 mmol/L (10-20); BUN (Urea Nitrogen) 17 mg/dL (9.8-20.1); Calc. Creatinine Clearance 0 mL/min (70-130); Calcium 8.2 mg/dL (7.8-10.44); Carbon Dioxide 24 mmol/L (23-31); Chloride 112 mmol/L (98-107); Glucose 106 mg/dL (83-110); Potassium 3.5 mmol/L (3.5-5.1); Sodium 146 mmol/L (136-145)
[2020-04-14] MEDS ORDERED: Ondansetron PF 4 MG/2 ML Vial IVP PRN (08:51)
[2020-04-14] MEDS ORDERED: Ondansetron ODT 4 MG TAB PO PRN (08:51)
[2020-04-14] MEDS ORDERED: Enoxaparin Sodium 40 MG/0.4 ML SYRINGE SC SCH (09:00)
[2020-04-14] MEDS ORDERED: Ramipril 5 MG CAP PO SCH (09:00)
[2020-04-14] MEDS: Enoxaparin Sodium 30 MG/0.3 ML SYRINGE SC SCH ×2 (10:30→10:36)
[2020-04-14] MEDS ORDERED: Aspirin Chewable 81 MG TAB ONE (10:32)
[2020-04-14] MEDS ORDERED: Enoxaparin Sodium 30 MG/0.3 ML SYRINGE ONE (10:32)
[2020-04-14] MEDS ORDERED: Ondansetron ODT 4 MG TAB ONE (10:35)
[2020-04-14] MEDS: Aspirin 81 mg Enteric Coated Tablet PO SCH (10:36)
[2020-04-14] MEDS ORDERED: NS 0.9% w/ 20 MEQ KCL 1,000 ML/1,000 ML BAG IV SCH (11:15)
--- NOTE | 2020-04-14 11:57 | CT ---
CT arteriogram chest with IV contrast and 3-D imaging HISTORY: Dyspnea. Chest pain. COVID positive. FINDINGS: There is good contrast opacification pulmonary arteries and thoracic aorta with normal bran mari of the great vessels at the aortic arch. Prominent calcification throughout the arterial structures. Scattered throughout each lung are small predominantly peripheral groundglass foci of parenchymal inf iltrate with mild associated interstitial thickening. No pleural fluid or mediastinal adenopathy evident. Calcified granulomata of the liver and spleen are consistent with healed renal masses disease. Small hiatal hernia. Mildly displaced acute appearing fracture of the anterolateral aspect of left rib 5. Prominent degene rative changes thoracic spine. IMPRESSION : No evidence of pulmonary embolus. Prominent widespread bilateral infiltrates with the appearance of COVID pneumonitis. Left fifth rib fracture with an acute appearance.
[2020-04-14] MEDS: Carvedilol 25 MG TAB PO SCH ×2 (13:48→18:36)
[2020-04-14] MEDS ORDERED: HumaLOG 300 UNITS/3 ML VIAL SC PRN (15:13)
[2020-04-14] MEDS ORDERED: Furosemide 20 MG TAB PO PRN (15:18)
--- NOTE | 2020-04-14 19:17 | PDOC.HOSPP ---
- Subjective Encounter Date: 04/14/20 Encounter Time: 15:00 Subjective: Patient seen and examined for chest discomfort which is resolved. Denies any nausea, vomiting or diaphoresis. No fever or chills reported. - Objective Vital Signs & Weight: Vital Signs (12 hours) BP 04/14/20 13:48 146/60 H Weight Weight 6.42 oz Result Diagrams: 04/14/20 07:19 04/14/20 07:19 Additional Labs: Abnormal Lab Results - Last 48 hrs 04/13/20 17:53: Chloride 111 H, BUN 22 H, Albumin 3.0 L, Albumin/Globulin Ratio 1.0 L 04/13/20 17:53: Troponin I 0.039 H 04/13/20 17:53: RBC 3.92 L, Hgb 10.6 L, Hct 33.3 L, MCHC 31.7 L, Lymphocytes % 20.7 L, Monocytes # 0.6 H 04/13/20 19:05: Urine Clarity Turbid A, Urine Protein 100 A, Ur Leukocyte Est erase 25 A, Urine WBC 7-10 A, Urine Bacteria 4+ A 04/13/20 20:52: SARS-CoV-2 (PCR) DETECTED A* 04/13/20 21:19: Troponin I 0.051 H 04/14/20 00:00: Troponin I 0.061 H 04/14/20 07:19: Sodium 146 H, Chloride 112 H 04/14/20 07:19: RBC 4.07 L, Hgb 11.1 L, Hct 34.7 L, Lymphocytes % 18.6 L, Lymphocytes # 1.0 L Microbiology - Entire Visit 04/13/20 19:05 Urine voided Urine Culture - Preliminary Presumptive Escherichia coli Radiology Reviewed by me: Yes (CT angiogram of the chestCOVID-19 pneumonia) EKG Reviewed by me: Yes (Sinus rhythm on telemetry) Hospitalist ROS - Review of Systems Cardiovascular: denies: chest pain, palpitations, orthopnea, paroxysmal noc. dyspnea, edema, light headedness, other Gastrointestinal: denies: nausea, vomiting, abdominal pain, diarrhea, cons tipation, melena, hematochezia, other - Medication Medications: Active Medications Generic Name Dose Route Start Last Admin Trade Name Freq PRN Reason Stop Dose Admin Aspirin 81 mg 04/14/20 09:00 04/14/20 10:36 Aspirin 81 Mg Enteric Coated Tablet PO 81 mg DAILY HOLLAND Administration Carvedilol 25 mg 04/14/20 08:00 04/14/20 18:36 Carvedilol 25 Mg Tab PO 25 mg BID-WM HOLLAND Administration Potassium Chloride/Sodium Chloride 1,000 ml in 1,000 mls @ 75 mls/hr 04/14/20 11:15 04/14/20 14:52 Ns 0.9% W/ 20 Meq Kcl IV 04/15/20 00:34 1,000 mls .[id number] HOLLAND Administration Ondansetron HCl 4 mg 04/14/20 08:51 04/14/20 10:35 Ondansetron Odt 4 Mg Tab PO 4 mg Q6H PRN Administration Nausea/Vomiting - Exam General Appearance: NAD Neck: supple, no JVD Heart: RRR, no gallops, no rubs, normal peripheral pulses Respiratory: no wheezes, no rales, normal chest expansion, no tachypnea, rhonchi Gastrointestinal: soft, non-tender, normal bowel sounds, no guarding, no rigidity Extremities: no cyanosis, no clubbing, no edema Neurological: no new deficit Psychiatric: normal affect, A&O x 3 Hosp A/P - Plan DVT proph w/SCDs Chest discomfort with indeterminate troponins COVID-19 pneumoniapatient is on room air E. coli UTIPOA Coronary artery disease s/p CABG Hypertensive urgency Diabetes mellitus type 2 Recent fall with left fifth rib fracture Plan: IV ceftriaxone for UTI. Await cardiology input. Continue aspirin. I have froilan ified all the home medications with the family over the phone. Will resume clonidine and carvedilol. Resume PPIs. Change Lovenox to 30 mg once a day. Restart statins. Continue sliding scale. DC once cleared by cardiology
[2020-04-14] MEDS ORDERED: cloNIDine 0.1 MG TAB PO SCH (21:00)
[2020-04-14] MEDS ORDERED: cefTRIAXone\\ROCEPHIN 1 GM VIAL ONE (22:25)
[2020-04-14] MEDS ORDERED: cloNIDine 0.1 MG TAB ONE (22:25)
[2020-04-14] MEDS: cefTRIAXone\\ROCEPHIN 1 GM in Sodium Chloride 0.9% 100 ML IVPB SCH (22:36)
[2020-04-14] MEDS: Atorvastatin Calcium 40 MG TAB PO SCH (22:36)
[2020-04-14] MEDS: cloNIDine 0.1 MG TAB PO SCH (22:36)
--- NOTE | 2020-04-14 22:37 | CON ---
DATE OF CONSULTATION: 04/14/2020 REASON FOR CONSULTATION: Chest pain, previous bypass surgery, COVID pneumonia. PRIMARY MANAGER MUTUAL FUND: Dr. Jagdish Cabello. HISTORY OF PRESENT ILLNESS: Ms. Copeland is an 89-year-old woman. She was in her usual state of about two weeks ago. She had a fall, likely mechanical, subsequently has had generalized weakness. She does complain of pain in her neck radiating down her arm, mainly on the left side. No cough or wheezing, but some shortness of breath. Mild swelling of her lower extremities. Chest x-ray showed patchy airspace opacities in each lung base. CT scan of the chest indicates ground-glass opacities compatible with COVID pneumonia, COVID serology is positive. REVIEW OF SYSTEMS: Per the chart, CONSTITUTIONAL: Weakness and fatigue. RESPIRATORY: Shortness of breath. GASTROINTESTINAL: No nausea, vomiting, diarrhea. SKIN: No rashes. NEUROLOGIC: No unilateral weakness or numbness. MEDICATIONS: At home included, 1. Aspirin. 2. Clonidine patch. 3. Atorvastatin. 4. Coreg. 5. Lasix. ALLERGIES: NONE REPORTED. PHYSICAL EXAMINATION: Examination was not done as the patient is positive for COVID pneumonia. Blood pressure of 150/60, pulse 70. LABORATORY STUDIES: Chest x-ray shows interstitial patchy infiltrates compatible with COVID pneumonia. CT scan looks like COVID pneumonia, serology positive for COVID pneumonia. Also was noted to have a rib fracture. Laboratory indicates troponin 0.061, indeterminate. CONCLUSION: 1. COVID pneumonia. 2. Previous bypass surgery. 3. History of hypertension. PLAN: Continue medicines for blood pressure and empiric anticoagulation. Consider increasing enoxaparin dose in view of risk of thrombotic disease with COVID. Dr. Cabello will check on the patient tomorrow. Job ID: [id number]
[2020-04-15 00:09] VITALS: BMI 24.4
[2020-04-15] MEDS: Zinc Sulfate 220 MG CAP PO SCH ×2 (00:09→21:17)
[2020-04-15] MEDS: cloNIDine 0.1 MG TAB PO SCH ×2 (08:04→21:17)
[2020-04-15] MEDS: Aspirin 81 mg Enteric Coated Tablet PO SCH (08:05)
[2020-04-15] MEDS: Ascorbic Acid 500 mg Chewable Tablet PO SCH (08:05)
[2020-04-15] MEDS: Carvedilol 25 MG TAB PO SCH ×2 (08:05→18:29)
[2020-04-15] MEDS: Enoxaparin Sodium 30 MG/0.3 ML SYRINGE SC SCH ×2 (08:33→21:17)
[2020-04-15] MEDS ORDERED: Non-Formulary Item 1 EACH (Cholestyramine (With Sugar) [Cholestyramine Packet] 4 GM Powd. PO SCH (09:00)
[2020-04-15] MEDS ORDERED: Enoxaparin Sodium 30 MG/0.3 ML SYRINGE SC SCH (09:00)
[2020-04-15] MEDS ORDERED: FLU VACC QS2020-21(65YR UP)/PF 240 MCG/0.7 ML SYRINGE IM ONE (09:00)
[2020-04-15 10:30] LABS: Anion Gap 16 mmol/L (10-20); BUN (Urea Nitrogen) 24 mg/dL (9.8-20.1); Calc. Creatinine Clearance 38 mL/min (70-130); Calcium 7.9 mg/dL (7.8-10.44); Carbon Dioxide 17 mmol/L (23-31); Chloride 114 mmol/L (98-107); Glucose 125 mg/dL (83-110); Potassium 3.5 mmol/L (3.5-5.1); Sodium 143 mmol/L (136-145)
[2020-04-15 10:52] LABS: CKMB 1.9 ng/mL (0-6.6)
[2020-04-15] MEDS: Atorvastatin Calcium 40 MG TAB PO SCH (21:17)
[2020-04-15] MEDS: cefTRIAXone\\ROCEPHIN 1 GM in Sodium Chloride 0.9% 100 ML IVPB SCH (21:17)
--- NOTE | 2020-04-15 22:23 | PDOC.HOSPP ---
- Subjective Encounter Date: 04/15/20 Encounter Time: 14:00 Subjective: Patient seen and examined for chest discomfort which is resolved. No new overnight events. No nausea, vomiting or diaphoresis. - Objective Vital Signs & Weight: Vital Signs (12 hours) Temp Pulse Resp BP Pulse Ox 04/15/20 21:30 98.7 F 69 16 191/98 H 96 04/15/20 18:00 99.6 F 73 18 163/70 H 04/15/20 13:10 98.9 F 78 18 136/62 97 Weight Weight 142 lb 6.4 oz Result Diagrams: 04/16/20 09:14 04/16/20 09:14 Additional Labs: Accuchecks 04/15/20 04/15/20 04/15/20 21:26 18:33 10:46 POC Glucose 96 110 H 115 H 04/15/20 04:48 POC Glucose 142 H Abnormal Lab Results - Last 48 hrs 04/13/20 20:52: SARS-CoV-2 (PCR) DETECTED A* 04/14/20 00:00: Troponin I 0.061 H 04/14/20 07:19: Sodium 146 H, Chloride 112 H 04/14/20 07:19: RBC 4.07 L, Hgb 11.1 L, Hct 34.7 L, Lymphocytes % 18.6 L, Lymphocytes # 1.0 L 04/15/20 09:43: Chloride 114 H, Carbon Dioxide 17 L, BUN 24 H 04/15/20 09:43: Troponin I 0.039 H Microbiology - Entire Visit 04/13/20 19:05 Urine voided Urine Culture - Final Escherichia coli EKG Reviewed by me: Yes (Sinus rhythm on telemetry) Hospitalist ROS - Review of Systems Respiratory: denies: cough, dry, shortness of breath, hemoptysis, SOB with excertion, pleuritic pain, sputum, wheezing, other Cardiovascular: denies: chest pain, palpitations, orthopnea, paroxysmal noc. dyspnea, edema, light headedness, other - Medication Medications: Active Medications Generic Name Dose Route Start Last Admin Trade Name Freq PRN Reason Stop Dose Admin Ascorbic Acid 1,000 mg 04/15/20 09:00 04/15/20 08:05 Ascorbic Acid 500 Mg Chewable Tablet PO 1,000 mg DAILY HOLLAND Administration Aspirin 81 mg 04/14/20 09:00 04/15/20 08:05 Aspirin 81 Mg Enteric Coated Tablet PO 81 mg DAILY HOLLAND Administration Atorvastatin Calcium 80 mg 04/14/20 21:00 04/15/20 21:17 Atorvastatin Calcium 40 Mg Tab PO 80 mg HS HOLLAND Administration Carvedilol 25 mg 04/14/20 08:00 04/15/20 18:29 Carvedilol 25 Mg Tab PO 25 mg BID-WM HOLLAND Administration Clonidine 0.1 mg 04/14/20 21:00 04/15/20 21:17 Clonidine 0.1 Mg Tab PO 0.1 mg BID HOLLAND Administration Enoxaparin Sodium 30 mg 04/15/20 09:00 04/15/20 21:17 Enoxaparin Sodium 30 Mg/0.3 Ml Syringe SC 30 mg 09,2099 HOLLAND Administration Hydralazine HCl 10 mg 04/13/20 21:59 04/15/20 00:10 Hydralazine 20 Mg/Ml Vial SLOW IVP 10 mg Q4H PRN Administration Hypertension Ceftriaxone Sodium 1 gm/ 100 mls @ 200 mls/hr 04/14/20 20:00 04/15/20 21:17 Sodium Chloride IVPB 100 mls 2000 HOLLAND Administration Ondansetron HCl 4 mg 04/14/20 08:51 04/14/20 10:35 Ondansetron Odt 4 Mg Tab PO 4 mg Q6H PRN Administration Nausea/Vomiting Ondansetron HCl 4 mg 04/14/20 08:51 04/15/20 03:24 Ondansetron Pf 4 Mg/2 Ml Vial IVP 4 mg Q6H PRN Administration Nausea/Vomiting Pantoprazole Sodium 40 mg 04/15/20 09:00 04/15/20 08:05 Pantoprazole 40 Mg Tab PO 40 mg DAILY HOLLAND Administration Zinc Sulfate 220 mg 04/14/20 21:00 04/15/20 21:17 Zinc Sulfate 220 Mg Cap PO 220 mg HS HOLLAND Administration - Exam General Appearance: NAD Neck: supple, no JVD Heart: no gallops, no rubs Respiratory: no rales Gastrointestinal: soft, non-distended Extremities: no cyanosis Hosp A/P - Plan DVT proph w/SCDs Chest discomfort with indeterminate troponins COVID-19 pneumoniapatient is on room air E. coli UTIPOA Coronary artery disease s/p CABG Hypertensive urgency Diabetes mellitus type 2 Recent fall with left fifth rib fracture Plan: Case discussed with cardiology Dr. Cabello. Cardiology recommended outpatient follow-up. Continue aspirin. Continue carvedilol and clonidine. Continue PPI. Increase Lovenox dose per cardiology. Continue ceftriaxone for UTI. Consult rehabilitation caseworker for home health care. DC home later today if family can arrange for caregiver 1/3 IV ceftriaxone for UTI. Await cardiology input. Continue aspirin. I have verified all the home medications with the family over the phone. Will resume clonidine and carvedilol. Resume PPIs. Change Lovenox to 30 mg once a day. Restart statins. Continue sliding scale. DC once cleared by cardiology
[2020-04-16] MEDS: cefTRIAXone\\ROCEPHIN 1 GM in Sodium Chloride 0.9% 100 ML IVPB SCH (02:57)
[2020-04-16] MEDS: Ascorbic Acid 500 mg Chewable Tablet PO SCH (08:55)
[2020-04-16] MEDS: Carvedilol 25 MG TAB PO SCH (08:55)
[2020-04-16] MEDS: Aspirin 81 mg Enteric Coated Tablet PO SCH (08:55)
[2020-04-16] MEDS: Enoxaparin Sodium 30 MG/0.3 ML SYRINGE SC SCH (08:55)
[2020-04-16] MEDS: cloNIDine 0.1 MG TAB PO SCH (08:56)
[2020-04-16 09:32] LABS: #Lymphocytes 0.9 thou/uL (1.20-3.40); #Monocytes 0.6 thou/uL (0.11-0.59); #Neutrophils 4.6 thou/uL (1.40-6.50); %Basophils 0.1 % (0.0-1.0); %Eosinophils 0.4 % (0.0-10.0); %Lymphocytes 15.2 % (21.0-51.0); %Monocytes 10.1 % (0.0-10.0); %Neutrophils 74.1 % (42.0-75.0); Hemoglobin 10.5 g/dL (12.0-16.0); Mean Corpuscular HGB CONC 31.7 g/dL (32.0-36.0); Mean Corpuscular Hemoglobin 27.6 pg (27.0-31.0); Mean Corpuscular Volume 86.8 fL (78.0-98.0); Mean Platelet Volume 6.8 fL (7.4-10.4); Platelet Count 237 thou/uL (130-400); RBC Distribution Width 13.8 % (11.5-14.5); Red Blood Cell (RBC) Count 3.82 mill/uL (4.20-5.40); White Blood Cell (WBC) Count 6.2 thou/uL (4.8-10.8)
[2020-04-16 09:49] LABS: ALT (SGPT) 9 U/L (8-55); AST (SGOT) 12 U/L (5-34); Albumin 2.7 g/dL (3.4-4.8); Alkaline Phosphatase 78 U/L (40-110); Anion Gap 14 mmol/L (10-20); BUN (Urea Nitrogen) 24 mg/dL (9.8-20.1); Bilirubin, Total 0.6 mg/dL (0.2-1.2); Calc. Creatinine Clearance 40 mL/min (70-130); Calcium 8.2 mg/dL (7.8-10.44); Carbon Dioxide 23 mmol/L (23-31); Chloride 114 mmol/L (98-107); Globulin 3.1 g/dL (2.4-3.5); Glucose 166 mg/dL (83-110); Potassium 3.8 mmol/L (3.5-5.1); Protein, Total 5.8 g/dL (6.0-8.3); Sodium 147 mmol/L (136-145)
[2020-04-16 10:06] LABS: MDiff Complete? YES; Platelet Morphology Comment Appears Adequate; Polychromasia SLIGHT = 2-3 cells (100X) (0-2/hpf)
[2020-04-16 12:02] VITALS: BP 145/61; TEMP 97.9
--- NOTE | 2020-04-16 21:06 | PDOC.DS.DS ---
Provider - Provider Date of Admission: 04/15/20 10:35 Date of Discharge: 04/16/20 Admitting Provider: Jerome Kumari MD Consultations: Cardiology Primary Care Physician: Sancho Elmore MD Course - Hospital Course Hospital Course: Patient is a 89-year-old female with coronary artery disease s/p CABG, hypertension, diabetes mellitus type II with recent fall present 8 to the emergency room with generalized weakness along with chest discomfort on and off over the past few weeks. Please refer to the history and physical for further details. The patient was admitted to the hospital with a diagnosis of chest discomfort rule out acute coronary syndrome. A COVID screening test came back positive. Her troponins were in the indeterminate range with a maximum troponin of 0.061. CT angiogram of the chest was negative for pulmonary embolism. It showed changes consistent with COVID pneumonitis with recent left 5th rib fracture. Cervical spine CT was negative for acute fractures or dislocation. A CT scan of the brain was negative for acute findings. Patient was evaluated by cardiology who recommended outpatient follow-up. She was also found to have E. coli UTI which is pansensitive. She was started on IV ceftriaxone that will be t ransitioned to oral antibiotics. Patient has been cleared by cardiology for discharge. The family was extensively counseled on COVID precautions. Fall precaution was emphasized. Repeat chest x-ray after 2-4 weeks is recommended. Plan of care was discussed with the patient's daughter in detail she stated understanding. Final diagnoses: Chest discomfort with indeterminate troponins COVID-19 pneumoniapatient is on room air E. coli UTI Coronary artery disease s/p CABG Hypertensive urgency Diabetes mellitus type 2 Recent fall with left fifth rib fracture Resuscitation Status: 04/13/20 20:46 Resuscitation Status Routine Resuscitation Status: FULL: Full Resuscitation - Labs Lab Results: 04/16/20 09:14 04/16/20 09:14 Abnormal Lab Results - Last 48 hrs 04/15/20 09:43: Chloride 114 H, Carbon Dioxide 17 L, BUN 24 H 04/15/20 09:43: Troponin I 0.039 H 04/16/20 09:14: Sodium 147 H, Chloride 114 H, BUN 24 H, Serum Total Protein 5.8 L, Albumin 2.7 L, Albumin/Globulin Ratio 0.9 L 04/16/20 09:14: RBC 3.82 L, Hgb 10.5 L, Hct 33.2 L, MCHC 31.7 L, MPV 6.8 L, Lymphocytes % 15.2 L, Monocytes % 10.1 H, Lymphocytes # 0.9 L, Monocytes # 0.6 H Microbiology - Entire Visit 04/13/20 19:05 Urine voided Urine Culture - Final Escherichia coli - Physical Exam Vitals: Vital Signs (12 hours) Temp Pulse Resp BP Pulse Ox 04/16/20 12:00 97.9 F 87 16 145/61 H 98 Weight Weight 142 lb 6.4 oz Physical Exam: The patient was seen and examined on the day of discharge. Plan - Discharge Medications Prescriptions: Saccharomyces boulardii [Florastor] 250 mg PO DAILY #30 cap Cefdinir [Omnicef] 300 mg PO BID #7 cap Albuterol Sulfate HFA (OR) [Proventil Hfa (or)] 2 puff INH Q4H PRN #1 inh PRN Reason: Sob &/Or Wheezing Ascorbic Acid [Vitamin C] 1,000 mg PO DAILY #30 tablet Zinc Sulfate 220 mg PO DAILY #30 cap Home Medications: Medication Instructions Recorded Confirmed Type Insulin Glargine,Hum.Rec.Anlog 20 units SC BID 07/13/17 04/14/20 History [Lantus] Carvedilol [Coreg] 25 mg PO BID #60 tab 07/16/17 04/14/20 Rx Aspirin [Aspirin EC] 81 mg PO DAILY 04/14/20 04/14/20 History Atorvastatin Calcium 80 mg PO HS 04/14/20 04/14/20 History Cholecalciferol [Vitamin D3] 1,000 unit PO DAILY 04/14/20 04/14/20 History Cholestyramine (With Sugar) 1 packet PO DAILY 04/14/20 04/14/20 History [Cholestyramine Packet] Furosemide 20 mg PO DAILY PRN 04/14/20 04/14/20 History Linagliptin [Tradjenta] 5 mg PO DAILY 04/14/20 04/14/20 History Pantoprazole [Protonix] 40 mg PO DAILY 04/14/20 04/14/20 History cloNIDine HCl 0.1 mg PO BID 04/14/20 04/14/20 History Albuterol Sulfate HFA (OR) 2 puff INH Q4H PRN #1 inh 04/15/20 Rx [Proventil Hfa (or)] Ascorbic Acid [Vitamin C] 1,000 mg PO DAILY #30 tablet 04/15/20 Rx Cefdinir [Omnicef] 300 mg PO BID #7 cap 04/15/20 Rx Saccharomyces boulardii [Florastor] 250 mg PO DAILY #30 cap 04/15/20 Rx Zinc Sulfate 220 mg PO DAILY #30 cap 04/15/20 Rx Allergies: No Known Allergies Allergy (Verified 04/14/20 23:57) - Discharge Instructions Discharge Instructions:: Monitor pulse oximetry on daily basis 24 hr supervision Fall precautions BMP after 1 week - PCP to arrange/follow - Follow up Plan Referrals: Javad Pierson DO [Affiliate] - 7 Days Jagdish Cabello MD [Active] - 14 Days Disposition: HOME Quality - Care Measures CORE MEASURES:: N/A
--- NOTE | 2020-04-18 00:36 | PQF ---
Dear : Henri Winston Date 04/18/2020 Please exercise your independent, professional judgment in responding to the clarification form. Clinical indicators are provided on the bottom of this form for your review Can you please further clarify the diagnosis of the patient? Please check appropriate box(es) [ ] Type 1 OH (NSTEMI) [ x ] Type 2 OH (T2MI) secondary to: COVID19 Pneumonia - most likely [ ] Other diagnosis please specify [ ] Unable to determine Physician Signature: Date/Time: For continuity of documentation, please document condition throughout progress notes and discharge summary. Thank You. To be completed by CDI/Coding staff for physician review: Present Clinical Indicators - Signs / Symptoms / Labs Results and Location in Medical Record [ x ] Weakness and chest discomfort for the past couple of weeks H and P pg.1 [ x ] NSTEMI H and P pg.4 [ x ] Troponin I: 0.036H, 0.051H, 0.061H, 0.039H Laboratory [ x ] Chest discomfort with indeterminate troponins DS pg.1 [ x ] Chest discomfort rule out acute coronary syndrome DS pg.1 [ x ] EKG: ST - T wave ED Notes 04/13 Present Risk Factors Results and Location in Medical Record [ x ] Hypertension H and P pg.1 [ x ] History of Coronary Artery Disease H and P pg.1 [ x ] Hypertensive emergency H and P pg.4 [ x ] History of Diabetes H and P pg.1 [ x ] 89 years old H and P pg.1 [ x ] HLD ED Notes 04/13 Present Treatments Results and Location in Medical Record [ x ] Cardiology Consult Dr. Beth 04/14 [ x ] IV Fluids MAR [ x ] Troponin Monitoring Laboratory [ x ] Aspirin 81 mg oral MAR [ x ] Catapress 0.1 mg PO MAR [ x ] Carvedilol 25 mg PO MAR [ x ] Lovenox 40mg Subcu JUN 10 CDS/Magnetic Tape Typewriter Operator Signature: Tim Quintanilla Phone #: ext [phone] Date 04/18/2020 This is a permanent part of the Medical Record [facility]
== END 2020-04-16 13:30 | disposition home or self-care (01) | DRG 177 ==
LOC: ERS 17:19 → ERHOLD 19:53 → 2SE 04-14 23:28 → OBSVTOIN 04-15 10:35
PROVIDERS: ADMIT Student in an Organized Health Care Education/Training Program; ATTEND Internal Medicine
PROC: 8E0ZXY6 Isolation (ICD-10-PCS; principal; 2020-04-15)
DX: U07.1 COVID-19 (principal); J12.82 Pneumonia due to coronavirus disease 2019; I21.A1 Myocardial infarction type 2; N39.0 Urinary tract infection, site not specified; I16.1 Hypertensive emergency; I25.10 Atherosclerotic heart disease of native coronary artery without angina pectoris; I10 Essential (primary) hypertension; E11.9 Type 2 diabetes mellitus without complications; B96.20 Unspecified Escherichia coli [E. coli] as the cause of diseases classified elsewhere; E78.5 Hyperlipidemia, unspecified; I16.0 Hypertensive urgency; W19.XXXD Unspecified fall, subsequent encounter; S22.32XD Fracture of one rib, left side, subsequent encounter for fracture with routine healing; Z95.1 Presence of aortocoronary bypass graft; Z79.82 Long term (current) use of aspirin; Z79.899 Other long term (current) drug therapy; Z79.4 Long term (current) use of insulin
CPT/HCPCS: 36415; 36416; 70450; 71045; 71275; 72125; 80048; 80053; 81003; 81015; 82553; 83735; 84484; 85025; 87077; 87086; 87186; 87635; 93005; 96372; 96375; G0378; J0360; J0696; J1650; J2405; J3480; J3490; Q0162; U0003

== ENCOUNTER 2020-09-08 17:30 | Inpatient (IN) | payer MEDICARE ==
[2020-09-08] MEDS ORDERED: Atropine Sulfate 1 mg/10 ml Syringe ONE (17:49)
[2020-09-08 17:56] LABS: #Eosinphils 0.1 thou/uL (0.0-0.7); #Monocytes 0.7 thou/uL (0.11-0.59); #Neutrophils 5.4 thou/uL (1.40-6.50); %Basophils 0.5 % (0.0-1.0); %Eosinophils 0.7 % (0.0-10.0); %Lymphocytes 23.8 % (21.0-51.0); %Monocytes 8.9 % (0.0-10.0); Hemoglobin 10.7 g/dL (12.0-16.0); Mean Corpuscular HGB CONC 32.6 g/dL (32.0-36.0); Mean Corpuscular Hemoglobin 27.5 pg (27.0-31.0); Mean Corpuscular Volume 84.4 fL (78.0-98.0); Mean Platelet Volume 9.6 fL (7.4-10.4); Platelet Count 157 thou/uL (130-400); Red Blood Cell (RBC) Count 3.87 mill/uL (4.20-5.40); White Blood Cell (WBC) Count 8.2 thou/uL (4.8-10.8)
[2020-09-08] MEDS ORDERED: EPINEPHrine 1 MG/10 ML Abboject SYRINGE ONE (17:56)
[2020-09-08] MEDS ORDERED: Calcium Gluc 4.6 MEQ/10 ML (100 MG/ML) ONE ×2 (17:58→17:59)
[2020-09-08] MEDS ORDERED: Calcium Chloride 1 GM/10 ML Abboject SYRINGE ONE ×2 (18:00→19:11)
[2020-09-08 18:41] LABS: ALT (SGPT) 24 U/L (8-55); AST (SGOT) 20 U/L (5-34); Albumin 3.3 g/dL (3.4-4.8); Alkaline Phosphatase 90 U/L (40-110); Anion Gap 11 mmol/L (10-20); BUN (Urea Nitrogen) 80 mg/dL (9.8-20.1); Bilirubin, Total 0.2 mg/dL (0.2-1.2); Calc. Creatinine Clearance 0 mL/min (70-130); Calcium 8.7 mg/dL (7.8-10.44); Carbon Dioxide 13 mmol/L (23-31); Chloride 118 mmol/L (98-107); Globulin 3.2 g/dL (2.4-3.5); Glucose 129 mg/dL (83-110); Magnesium 2.2 mg/dL (1.6-2.6); Protein, Total 6.5 g/dL (5.8-8.1); Sodium 134 mmol/L (136-145)
[2020-09-08 18:47] LABS: Potassium 8.3 mmol/L (3.5-5.1)
[2020-09-08 19:02] LABS: SARS-CoV-2 NAA Rapid Test Not Detected (NotDetected)
[2020-09-08] MEDS ORDERED: Dextrose 50% Abboject 50 ML SYRINGE ONE ×2 (19:11→19:13)
[2020-09-08] MEDS ORDERED: Insulin Regular 300 UNITS/3 ML VIAL ONE (19:11)
[2020-09-08] MEDS ORDERED: Sodium Bicarb 50 MEQ/50 ML Abboject 8.4% SYRINGE ONE (19:23)
[2020-09-08 19:48] LABS: Bacteria/HPF 4+ HPF (None Seen); Mucous/LPF Rare LPF (<2+); WBC/HPF Greater than 50 HPF (0-3)
[2020-09-08 19:55] LABS: Calcium Oxalate Crystals 1+ HPF (None Seen)
[2020-09-08 19:56] LABS: Bilirubin Negative (Negative); Blood, Urine Negative (Negative); Clarity Turbid (Clear); Glucose, Urine (Dipstick) Normal (Negative); Ketone, Urine Negative (Negative); Leukocyte 500 Leu/uL (Negative); Nitrite Negative (Negative); Protein, Urine (Dipstick) 30 mg/dL (Neg-Trace); Specific Gravity, Urine 1.014 (1.002-1.036); Urobilinogen Normal mg/dL (Less than 2); pH, Urine 5.5 (5.0-9.0)
[2020-09-08] MEDS ORDERED: Ondansetron PF 4 MG/2 ML Vial IVP PRN (20:47)
[2020-09-08] MEDS ORDERED: hydrALAZINE 20 MG/ML VIAL SLOW IVP PRN (20:51)
[2020-09-08] MEDS ORDERED: Sodium Bicarbonate 150 MEQ in Dextrose 5% in Water 1,000 ML IV SCH (21:00)
[2020-09-08 21:48] LABS: Anion Gap 14 mmol/L (10-20); BUN (Urea Nitrogen) 68 mg/dL (9.8-20.1); Calc. Creatinine Clearance 0 mL/min (70-130); Calcium 10.8 mg/dL (7.8-10.44); Carbon Dioxide 12 mmol/L (23-31); Chloride 120 mmol/L (98-107); Glucose 108 mg/dL (83-110); Potassium 7.3 mmol/L (3.5-5.1); Sodium 139 mmol/L (136-145)
[2020-09-08] MEDS: Famotidine 20 MG TAB PO SCH (21:50)
[2020-09-08 22:07] VITALS: BMI 28.0
[2020-09-08 23:11] LABS: HBSAg Index 0.16 S/CO (0-0.99); Hep B Surf Ag Non-Reactive S/CO (NonReactive)
[2020-09-08] MEDS: Acetaminophen 325 MG TAB PO PRN (23:23)
[2020-09-09] MEDS ORDERED: Dextrose 50% Abboject 50 ML SYRINGE SLOW IVP PRN (00:17)
[2020-09-09] MEDS ORDERED: Dextrose 5% in Water 1,000 ML IV PRN (00:17)
[2020-09-09] MEDS ORDERED: HumaLOG 300 UNITS/3 ML VIAL SC PRN (00:17)
[2020-09-09 04:36] LABS: #Lymphocytes 1.5 thou/uL (1.20-3.40); #Monocytes 0.7 thou/uL (0.11-0.59); #Neutrophils 6.4 thou/uL (1.40-6.50); %Basophils 0.5 % (0.0-1.0); %Eosinophils 0.5 % (0.0-10.0); %Lymphocytes 17.3 % (21.0-51.0); %Monocytes 8.6 % (0.0-10.0); %Neutrophils 73.1 % (42.0-75.0); Hemoglobin 9.8 g/dL (12.0-16.0); Mean Corpuscular HGB CONC 32.4 g/dL (32.0-36.0); Mean Corpuscular Hemoglobin 26.5 pg (27.0-31.0); Mean Corpuscular Volume 81.7 fL (78.0-98.0); Mean Platelet Volume 10.3 fL (7.4-10.4); Platelet Count 139 thou/uL (130-400); RBC Distribution Width 15.8 % (11.5-14.5); Red Blood Cell (RBC) Count 3.68 mill/uL (4.20-5.40); White Blood Cell (WBC) Count 8.7 thou/uL (4.8-10.8)
[2020-09-09 05:04] LABS: Anion Gap 11 mmol/L (10-20); BUN (Urea Nitrogen) 22 mg/dL (9.8-20.1); Calc. Creatinine Clearance 47 mL/min (70-130); Carbon Dioxide 25 mmol/L (23-31); Chloride 106 mmol/L (98-107); Glucose 87 mg/dL (83-110); Sodium 138 mmol/L (136-145)
[2020-09-09] MEDS: Famotidine 20 MG TAB PO SCH ×2 (09:00→21:50)
[2020-09-09] MEDS: HumaLOG 300 UNITS/3 ML VIAL SC PRN (17:31)
[2020-09-09] MEDS: Acetaminophen 325 MG TAB PO PRN (17:37)
[2020-09-10 03:43] LABS: #Eosinphils 0.1 thou/uL (0.0-0.7); #Lymphocytes 1.8 thou/uL (1.20-3.40); #Monocytes 0.8 thou/uL (0.11-0.59); #Neutrophils 3.2 thou/uL (1.40-6.50); %Basophils 0.2 % (0.0-1.0); %Eosinophils 2.1 % (0.0-10.0); %Lymphocytes 30.7 % (21.0-51.0); %Monocytes 13.5 % (0.0-10.0); %Neutrophils 53.4 % (42.0-75.0); Hemoglobin 10.2 g/dL (12.0-16.0); Mean Corpuscular HGB CONC 33.6 g/dL (32.0-36.0); Mean Corpuscular Volume 83.2 fL (78.0-98.0); Mean Platelet Volume 9.2 fL (7.4-10.4); Platelet Count 130 thou/uL (130-400); RBC Distribution Width 15.7 % (11.5-14.5); Red Blood Cell (RBC) Count 3.66 mill/uL (4.20-5.40); White Blood Cell (WBC) Count 5.9 thou/uL (4.8-10.8)
[2020-09-10 04:05] LABS: Anion Gap 10 mmol/L (10-20); BUN (Urea Nitrogen) 22 mg/dL (9.8-20.1); Calc. Creatinine Clearance 41 mL/min (70-130); Calcium 8.3 mg/dL (7.8-10.44); Carbon Dioxide 28 mmol/L (23-31); Chloride 106 mmol/L (98-107); Glucose 126 mg/dL (83-110); Potassium 4.9 mmol/L (3.5-5.1); Sodium 139 mmol/L (136-145)
[2020-09-10] MEDS ORDERED: Enoxaparin Sodium 30 MG/0.3 ML SYRINGE SC SCH (09:00)
[2020-09-10] MEDS: Acetaminophen 325 MG TAB PO PRN (10:35)
[2020-09-10] MEDS: Famotidine 20 MG TAB PO SCH (10:35)
[2020-09-10] MEDS: cefTRIAXone\\ROCEPHIN 1 GM in Sodium Chloride 0.9% 100 ML IVPB SCH (11:03)
[2020-09-10 12:03] LABS: Bacteria/HPF 3+ HPF (None Seen); Bilirubin Negative (Negative); Blood, Urine 1+ (Negative); Clarity Turbid (Clear); Glucose, Urine (Dipstick) 100 mg/dL (Negative); Ketone, Urine Negative (Negative); Leukocyte 500 Leu/uL (Negative); Nitrite 2+ (Negative); Protein, Urine (Dipstick) 50 mg/dL (Neg-Trace); Specific Gravity, Urine 1.015 (1.002-1.036); Urobilinogen Normal mg/dL (Less than 2); WBC/HPF Greater than 50 HPF (0-3); pH, Urine 5.5 (5.0-9.0)
[2020-09-10] MEDS: HumaLOG 300 UNITS/3 ML VIAL SC PRN ×2 (12:40→16:22)
[2020-09-10] MEDS: hydrALAZINE 20 MG/ML VIAL SLOW IVP PRN ×2 (16:20→20:51)
[2020-09-11] MEDS: hydrALAZINE 20 MG/ML VIAL SLOW IVP PRN ×2 (00:51→19:51)
[2020-09-11] MEDS: HumaLOG 300 UNITS/3 ML VIAL SC PRN ×3 (06:08→17:25)
[2020-09-11 06:16] LABS: #Eosinphils 0.1 thou/uL (0.0-0.7); #Lymphocytes 1.4 thou/uL (1.20-3.40); #Neutrophils 4.5 thou/uL (1.40-6.50); %Basophils 0.2 % (0.0-1.0); %Lymphocytes 20.1 % (21.0-51.0); %Monocytes 13.6 % (0.0-10.0); %Neutrophils 64.1 % (42.0-75.0); Hemoglobin 10.1 g/dL (12.0-16.0); Mean Corpuscular HGB CONC 32.2 g/dL (32.0-36.0); Mean Corpuscular Hemoglobin 27.4 pg (27.0-31.0); Mean Corpuscular Volume 84.9 fL (78.0-98.0); Mean Platelet Volume 9.2 fL (7.4-10.4); Platelet Count 137 thou/uL (130-400); RBC Distribution Width 15.8 % (11.5-14.5); Red Blood Cell (RBC) Count 3.68 mill/uL (4.20-5.40)
[2020-09-11 06:37] LABS: Anion Gap 12 mmol/L (10-20); BUN (Urea Nitrogen) 27 mg/dL (9.8-20.1); Calc. Creatinine Clearance 37 mL/min (70-130); Calcium 8.2 mg/dL (7.8-10.44); Carbon Dioxide 25 mmol/L (23-31); Chloride 105 mmol/L (98-107); Glucose 328 mg/dL (83-110); Potassium 4.5 mmol/L (3.5-5.1); Sodium 137 mmol/L (136-145)
[2020-09-11] MEDS: Famotidine 20 MG TAB PO SCH (08:57)
[2020-09-11] MEDS: Losartan 25 MG TAB PO SCH (08:58)
[2020-09-11] MEDS: cefTRIAXone\\ROCEPHIN 1 GM in Sodium Chloride 0.9% 100 ML IVPB SCH (08:59)
[2020-09-11] MEDS ORDERED: Lantus 1000 UNITS/10 ML VIAL SC SCH (16:45)
[2020-09-12] MEDS: hydrALAZINE 20 MG/ML VIAL SLOW IVP PRN (06:33)
[2020-09-12] MEDS: Famotidine 20 MG TAB PO SCH (08:43)
[2020-09-12] MEDS: Losartan 25 MG TAB PO SCH (08:43)
[2020-09-12] MEDS ORDERED: Ciprofloxacin 500 MG TAB PO SCH ×2 (08:45→20:00)
[2020-09-12] MEDS ORDERED: Lantus 1000 UNITS/10 ML VIAL SC SCH (09:00)
[2020-09-12 12:04] VITALS: TEMP 97.9
[2020-09-12] MEDS: HumaLOG 300 UNITS/3 ML VIAL SC PRN (13:31)
[2020-09-12 13:41] VITALS: BP 169/60
[2020-09-12] MEDS ORDERED: hydrALAZINE 25 MG TAB PO SCH (15:00)
== END 2020-09-12 14:11 | DRG 682 ==
LOC: ERS 17:30 → CCU 20:05 → T4-A 09-10 17:06
PROVIDERS: ADMIT Internal Medicine; ATTEND Internal Medicine
PROC: 06HY33Z Insertion of Infusion Device into Lower Vein, Percutaneous Approach (ICD-10-PCS; principal; 2020-09-08)
PROC: 5A1D70Z Performance of Urinary Filtration, Intermittent, Less than 6 Hours Per Day (ICD-10-PCS; 2020-09-08)
DX: N17.9 Acute kidney failure, unspecified (principal); S06.6X0A Traumatic subarachnoid hemorrhage without loss of consciousness, initial encounter; I13.0 Hypertensive heart and chronic kidney disease with heart failure and stage 1 through stage 4 chronic kidney disease, or unspecified chronic kidney disease; E87.2 Acidosis; N39.0 Urinary tract infection, site not specified; E87.1 Hypo-osmolality and hyponatremia; E87.5 Hyperkalemia; R00.1 Bradycardia, unspecified; L97.519 Non-pressure chronic ulcer of other part of right foot with unspecified severity; F01.50 Vascular dementia, unspecified severity, without behavioral disturbance, psychotic disturbance, mood disturbance, and anxiety; I25.10 Atherosclerotic heart disease of native coronary artery without angina pectoris; E78.5 Hyperlipidemia, unspecified; E11.22 Type 2 diabetes mellitus with diabetic chronic kidney disease; I48.91 Unspecified atrial fibrillation; I44.7 Left bundle-branch block, unspecified; I50.9 Heart failure, unspecified; E11.622 Type 2 diabetes mellitus with other skin ulcer; W19.XXXA Unspecified fall, initial encounter; E11.51 Type 2 diabetes mellitus with diabetic peripheral angiopathy without gangrene; Z20.822 Contact with and (suspected) exposure to COVID-19; B96.20 Unspecified Escherichia coli [E. coli] as the cause of diseases classified elsewhere; N18.30 Chronic kidney disease, stage 3 unspecified; Z79.82 Long term (current) use of aspirin; Z79.4 Long term (current) use of insulin; Z79.899 Other long term (current) drug therapy; Z95.1 Presence of aortocoronary bypass graft; Z98.890 Other specified postprocedural states
CPT/HCPCS: 0240U; 36415; 36416; 51702; 70450; 71045; 72125; 80048; 80053; 81003; 81015; 83735; 84484; 85025; 87077; 87086; 87186; 87340; 90935; 93005; 93010; 93923; 96365; 96367; 96375; 96376; G0257; J0171; J0360; J0461; J0696; J1815; J2001; J2405; J3490; J7070

== ENCOUNTER 2021-08-01 06:32 | Inpatient (IN) | payer MEDICARE ==
[2021-08-01 07:12] LABS: #Eosinphils 0.1 thou/uL (0.0-0.7); #Lymphocytes 1.7 thou/uL (1.20-3.40); #Neutrophils 5.7 thou/uL (1.40-6.50); %Basophils 0.3 % (0.0-1.0); %Eosinophils 0.8 % (0.0-10.0); %Lymphocytes 20.4 % (21.0-51.0); %Monocytes 11.3 % (0.0-10.0); %Neutrophils 67.2 % (42.0-75.0); Hemoglobin 11.8 g/dL (12.0-16.0); Mean Corpuscular HGB CONC 32.5 g/dL (32.0-36.0); Mean Corpuscular Hemoglobin 28.1 pg (27.0-31.0); Mean Corpuscular Volume 86.6 fL (78.0-98.0); Platelet Count 198 thou/uL (130-400); RBC Distribution Width 13.8 % (11.5-14.5); Red Blood Cell (RBC) Count 4.21 mill/uL (4.20-5.40); White Blood Cell (WBC) Count 8.5 thou/uL (4.8-10.8)
[2021-08-01 07:34] LABS: ALT (SGPT) 15 U/L (8-55); AST (SGOT) 23 U/L (5-34); Albumin 3.8 g/dL (3.4-4.8); Alkaline Phosphatase 95 U/L (40-110); Anion Gap 15 mmol/L (10-20); BUN (Urea Nitrogen) 115 mg/dL (9.8-20.1); Bilirubin, Total 0.7 mg/dL (0.2-1.2); Calc. Creatinine Clearance 0 mL/min (70-130); Calcium 8.7 mg/dL (7.8-10.44); Carbon Dioxide 30 mmol/L (23-31); Chloride 91 mmol/L (98-107); Globulin 3.2 g/dL (2.4-3.5); Glucose 183 mg/dL (83-110); Potassium 3.9 mmol/L (3.5-5.1); Sodium 132 mmol/L (136-145)
[2021-08-01] MEDS ORDERED: Succinylcholine 200 MG/10 ml SYRINGE FS ONE (08:38)
[2021-08-01] MEDS ORDERED: Propofol 1,000 MG/100 ML VIAL IV ONE (08:40)
[2021-08-01] MEDS ORDERED: Fentanyl 100 MCG/2 ML VIAL ONE ×2 (08:58→09:18)
[2021-08-01 09:13] LABS: Magnesium 4.1 mg/dL (1.6-2.6); Phosphorus 3.3 mg/dL (2.3-4.7)
[2021-08-01] MEDS ORDERED: Dextrose 50% Abboject 50 ML SYRINGE SLOW IVP PRN (09:16)
[2021-08-01] MEDS ORDERED: Ondansetron PF 4 MG/2 ML Vial IVP PRN (09:16)
[2021-08-01] MEDS ORDERED: Dextrose 5% in Water 1,000 ML IV PRN (09:16)
[2021-08-01 09:28] LABS: Prothrombin Time 13.6 sec (12.0-14.7)
[2021-08-01 09:29] LABS: PTT 30.5 sec (22.9-36.1)
[2021-08-01] MEDS ORDERED: Propofol 1,000 MG/100 ML VIAL IV PRN (09:30)
[2021-08-01] MEDS ORDERED: DISCONTINUE PREVIOUS NARCOTIC PAIN MEDICATIONS AND BENZODIAZEPINES FS SCH (09:30)
[2021-08-01] MEDS ORDERED: Ventilator Sedation Protocol 1 EACH FS SCH (09:30)
[2021-08-01] MEDS ORDERED: fentaNYL Citrate-0.9 % NaCl/PF 100 ML IV SCH (09:45)
[2021-08-01 09:46] LABS: CK (CPK) 149 U/L (29-168)
[2021-08-01 10:21] LABS: Bilirubin Negative (Negative); Blood, Urine Negative (Negative); Clarity Clear (Clear); Glucose, Urine (Dipstick) Normal (Negative); Ketone, Urine Negative (Negative); Leukocyte Negative Leu/uL (Negative); Nitrite Negative (Negative); Protein, Urine (Dipstick) Negative (Neg-Trace); Specific Gravity, Urine 1.013 (1.002-1.036); Urobilinogen Normal mg/dL (Less than 2)
[2021-08-01 10:55] LABS: SARS-CoV-2 NAA Rapid Test Not Detected (NotDetected)
[2021-08-01 11:25] LABS: Actual Bicarbonate (HCO3a) 27.1 mEq/L (22-28); Base Excess (BEa) 6.5 mEq/L (-2.0 to +3.0); CO2 Tension 26.7 mmHg (35.0-45.0); Calcium, Ionized (arterial) 1.08 mmol/L (1.12-1.30); Carboxyhemoglobin (COHb) 0.3 gm% (0.0-3.0); Hemoglobin (Hb) 12.1 g/dL (12.0-16.0); O2 Tension (PaO2), arterial 109.6 mmHg (> 60.0); Potassium - ABG Lab 3.42 mmol/L (3.70-5.30)
[2021-08-01 11:26] LABS: ALV-art Gradient 28.145 mmHg (0-20); Puncture Site RRA; pH, Arterial 7.62 (7.35-7.45)
[2021-08-01] MEDS: Sodium Chloride 0.9% 1,000 ML IV SCH ×2 (11:31→23:00)
[2021-08-01] MEDS: hydrALAZINE 20 MG/ML VIAL SLOW IVP PRN (12:25)
[2021-08-01 14:20] VITALS: BMI 24.1
[2021-08-01 18:19] LABS: Bacteria/HPF None Seen HPF (None Seen); Bilirubin Negative (Negative); Blood, Urine 1+ (Negative); Clarity Clear (Clear); Glucose, Urine (Dipstick) Normal (Negative); Ketone, Urine Trace mg/dL (Negative); Leukocyte Negative Leu/uL (Negative); Nitrite Negative (Negative); Protein, Urine (Dipstick) Negative (Neg-Trace); RBC/HPF None Seen HPF (0-3); Specific Gravity, Urine 1.012 (1.002-1.036); Squamous Epithelial None Seen HPF (0-3); Urobilinogen Normal mg/dL (Less than 2); WBC/HPF 0-3 HPF (0-3)
[2021-08-01] MEDS ORDERED: Acetaminophen 325 MG TAB PO SCH ×2 (18:30→23:59)
[2021-08-01 19:26] LABS: Troponin I 0.172 ng/mL (< 0.028)
[2021-08-01] MEDS: Insulin Regular 300 UNITS/3 ML VIAL SC PRN ×2 (19:55→22:37)
[2021-08-01] MEDS ORDERED: Famotidine/PF 20 mg/2ml Vial SLOW IVP SCH (21:00)
[2021-08-01] MEDS ORDERED: Acetaminophen 650 MG Suppository PR SCH (23:00)
[2021-08-02] MEDS: Senokot S 8.6-50 MG TAB PO SCH ×3 (00:25→20:42)
[2021-08-02 04:10] LABS: #Lymphocytes 1.2 thou/uL (1.20-3.40); #Monocytes 1.3 thou/uL (0.11-0.59); #Neutrophils 9.4 thou/uL (1.40-6.50); %Basophils 0.1 % (0.0-1.0); %Eosinophils 0.1 % (0.0-10.0); %Lymphocytes 9.8 % (21.0-51.0); %Monocytes 10.8 % (0.0-10.0); %Neutrophils 79.2 % (42.0-75.0); Hemoglobin 11.4 g/dL (12.0-16.0); Mean Corpuscular HGB CONC 32.7 g/dL (32.0-36.0); Mean Corpuscular Hemoglobin 28.5 pg (27.0-31.0); Mean Corpuscular Volume 87.2 fL (78.0-98.0); Mean Platelet Volume 8.5 fL (7.4-10.4); Platelet Count 174 thou/uL (130-400); RBC Distribution Width 13.8 % (11.5-14.5); Red Blood Cell (RBC) Count 4.01 mill/uL (4.20-5.40); White Blood Cell (WBC) Count 11.9 thou/uL (4.8-10.8)
[2021-08-02 05:20] LABS: Anion Gap 15 mmol/L (10-20); BUN (Urea Nitrogen) 77 mg/dL (9.8-20.1); Calc. Creatinine Clearance 25 mL/min (70-130); Calcium 8.2 mg/dL (7.8-10.44); Carbon Dioxide 27 mmol/L (23-31); Chloride 102 mmol/L (98-107); Glucose 143 mg/dL (83-110); Magnesium 3.7 mg/dL (1.6-2.6); Phosphorus 4.5 mg/dL (2.3-4.7); Potassium 3.1 mmol/L (3.5-5.1); Sodium 141 mmol/L (136-145)
[2021-08-02] MEDS: Acetaminophen 650 MG Suppository PR SCH ×3 (05:59→12:49)
[2021-08-02] MEDS ORDERED: Potassium Chloride 20 MEQ in Premix Bag 1 BAG IVPB SCH (08:00)
[2021-08-02] MEDS: Polyethylene Glycol 3350 17 GM Packet PO SCH (12:50)
[2021-08-02] MEDS: Potassium Chloride 20 MEQ in Premix Bag 1 BAG IVPB SCH ×2 (13:22→20:43)
[2021-08-02] MEDS: hydrALAZINE 25 MG TAB PO SCH ×2 (19:51→20:44)
[2021-08-02] MEDS: Atorvastatin Calcium 40 MG TAB PO SCH (20:41)
[2021-08-02] MEDS: Acetaminophen/Codeine 30-300mg Tablet PO PRN (20:41)
[2021-08-02] MEDS: Insulin Regular 300 UNITS/3 ML VIAL SC PRN (20:42)
[2021-08-02] MEDS: Metoprolol Tartrate 50 MG TAB PO SCH (20:44)
[2021-08-02] MEDS ORDERED: Insulin Glargine 30 UNITS/0.3 ML VIAL SC SCH (21:00)
[2021-08-03] MEDS: Acetaminophen 650 MG Suppository PR SCH ×3 (00:24→12:17)
[2021-08-03 03:39] LABS: #Lymphocytes 0.9 thou/uL (1.20-3.40); #Monocytes 0.7 thou/uL (0.11-0.59); #Neutrophils 5.1 thou/uL (1.40-6.50); %Basophils 0.4 % (0.0-1.0); %Eosinophils 0.7 % (0.0-10.0); %Lymphocytes 13.4 % (21.0-51.0); %Monocytes 10.4 % (0.0-10.0); %Neutrophils 75.1 % (42.0-75.0); Hemoglobin 10.3 g/dL (12.0-16.0); Mean Corpuscular HGB CONC 31.6 g/dL (32.0-36.0); Mean Corpuscular Volume 88.5 fL (78.0-98.0); Mean Platelet Volume 8.3 fL (7.4-10.4); Platelet Count 164 thou/uL (130-400); RBC Distribution Width 13.9 % (11.5-14.5); Red Blood Cell (RBC) Count 3.66 mill/uL (4.20-5.40); White Blood Cell (WBC) Count 6.8 thou/uL (4.8-10.8)
[2021-08-03 04:24] LABS: Anion Gap 12 mmol/L (10-20); BUN (Urea Nitrogen) 49 mg/dL (9.8-20.1); Calc. Creatinine Clearance 29 mL/min (70-130); Calcium 8.6 mg/dL (7.8-10.44); Carbon Dioxide 28 mmol/L (23-31); Chloride 112 mmol/L (98-107); Glucose 78 mg/dL (83-110); Magnesium 3.4 mg/dL (1.6-2.6); Phosphorus 2.2 mg/dL (2.3-4.7); Potassium 3.6 mmol/L (3.5-5.1); Sodium 148 mmol/L (136-145)
[2021-08-03] MEDS ORDERED: Potassium Phosphate 30 MMOL in Sodium Chloride 0.9% 250 ML 250 ML IVPB SCH (08:00)
[2021-08-03] MEDS: Insulin Glargine 30 UNITS/0.3 ML VIAL SC SCH ×2 (09:04→20:59)
[2021-08-03] MEDS: Saccharomyces boulardii 250 MG CAP PO SCH (09:10)
[2021-08-03] MEDS: Polyethylene Glycol 3350 17 GM Packet PO SCH (09:11)
[2021-08-03] MEDS: Senokot S 8.6-50 MG TAB PO SCH ×2 (09:11→20:58)
[2021-08-03] MEDS: hydrALAZINE 25 MG TAB PO SCH ×3 (09:19→20:58)
[2021-08-03] MEDS: Metoprolol Tartrate 50 MG TAB PO SCH ×2 (09:20→20:58)
[2021-08-03] MEDS: Insulin Regular 300 UNITS/3 ML VIAL SC PRN ×3 (11:48→21:00)
[2021-08-03] MEDS: Acetaminophen 325 MG TAB PO SCH ×3 (12:16→17:47)
[2021-08-03] MEDS: Atorvastatin Calcium 40 MG TAB PO SCH (20:58)
[2021-08-04] MEDS: Acetaminophen 325 MG TAB PO SCH ×4 (00:36→17:32)
[2021-08-04 05:41] LABS: #Eosinphils 0.2 thou/uL (0.0-0.7); #Lymphocytes 1.2 thou/uL (1.20-3.40); #Monocytes 0.5 thou/uL (0.11-0.59); #Neutrophils 3.4 thou/uL (1.40-6.50); %Basophils 0.3 % (0.0-1.0); %Eosinophils 3.3 % (0.0-10.0); %Lymphocytes 23.1 % (21.0-51.0); %Monocytes 9.5 % (0.0-10.0); %Neutrophils 63.8 % (42.0-75.0); Mean Corpuscular HGB CONC 31.4 g/dL (32.0-36.0); Mean Corpuscular Hemoglobin 28.2 pg (27.0-31.0); Mean Corpuscular Volume 89.9 fL (78.0-98.0); Mean Platelet Volume 8.2 fL (7.4-10.4); Platelet Count 159 thou/uL (130-400); RBC Distribution Width 13.8 % (11.5-14.5); Red Blood Cell (RBC) Count 3.56 mill/uL (4.20-5.40); White Blood Cell (WBC) Count 5.3 thou/uL (4.8-10.8)
[2021-08-04 06:11] LABS: Anion Gap 11 mmol/L (10-20); BUN (Urea Nitrogen) 28 mg/dL (9.8-20.1); Calc. Creatinine Clearance 42 mL/min (70-130); Calcium 8.3 mg/dL (7.8-10.44); Carbon Dioxide 26 mmol/L (23-31); Chloride 110 mmol/L (98-107); Glucose 142 mg/dL (83-110); Magnesium 2.8 mg/dL (1.6-2.6); Phosphorus 2.9 mg/dL (2.3-4.7); Potassium 3.7 mmol/L (3.5-5.1); Sodium 143 mmol/L (136-145)
[2021-08-04] MEDS ORDERED: PHOS-NAK 1 PKT PACK PO SCH (09:15)
[2021-08-04] MEDS: Polyethylene Glycol 3350 17 GM Packet PO SCH (09:47)
[2021-08-04] MEDS: Insulin Glargine 30 UNITS/0.3 ML VIAL SC SCH ×2 (09:47→21:41)
[2021-08-04] MEDS: Senokot S 8.6-50 MG TAB PO SCH ×2 (09:49→21:50)
[2021-08-04] MEDS: hydrALAZINE 25 MG TAB PO SCH ×3 (09:49→21:41)
[2021-08-04] MEDS: Saccharomyces boulardii 250 MG CAP PO SCH (09:50)
[2021-08-04] MEDS: Metoprolol Tartrate 50 MG TAB PO SCH ×2 (09:50→21:41)
[2021-08-04] MEDS: Insulin Regular 300 UNITS/3 ML VIAL SC PRN ×2 (12:39→17:33)
[2021-08-04] MEDS: hydrALAZINE 20 MG/ML VIAL SLOW IVP PRN (17:35)
[2021-08-04] MEDS: cloNIDine 0.1 MG TAB PO SCH (21:41)
[2021-08-04] MEDS: Atorvastatin Calcium 40 MG TAB PO SCH (21:41)
[2021-08-04] MEDS: Acetaminophen/Codeine 30-300mg Tablet PO PRN (22:45)
[2021-08-05] MEDS: Acetaminophen 325 MG TAB PO SCH ×3 (01:20→12:21)
[2021-08-05] MEDS: Insulin Glargine 30 UNITS/0.3 ML VIAL SC SCH (09:27)
[2021-08-05] MEDS: hydrALAZINE 25 MG TAB PO SCH ×2 (09:27→15:53)
[2021-08-05] MEDS: Senokot S 8.6-50 MG TAB PO SCH (09:27)
[2021-08-05] MEDS: Saccharomyces boulardii 250 MG CAP PO SCH (09:28)
[2021-08-05] MEDS: Metoprolol Tartrate 50 MG TAB PO SCH (09:28)
[2021-08-05] MEDS: cloNIDine 0.1 MG TAB PO SCH (09:28)
[2021-08-05] MEDS: Polyethylene Glycol 3350 17 GM Packet PO SCH (09:30)
[2021-08-05] MEDS: Insulin Regular 300 UNITS/3 ML VIAL SC PRN (15:54)
[2021-08-05 15:59] VITALS: TEMP 98.3
[2021-08-05 16:25] VITALS: BP 166/60
== END 2021-08-05 16:45 | DRG 85 ==
LOC: ERS 06:32 → CCU 09:16 → SURG A 08-03 16:45
PROVIDERS: ADMIT Surgery; ATTEND Surgery
PROC: 5A1935Z Respiratory Ventilation, Less than 24 Consecutive Hours (ICD-10-PCS; principal; 2021-08-01)
PROC: 0D9670Z Drainage of Stomach with Drainage Device, Via Natural or Artificial Opening (ICD-10-PCS; 2021-08-01)
PROC: 0BH17EZ Insertion of Endotracheal Airway into Trachea, Via Natural or Artificial Opening (ICD-10-PCS; 2021-08-01)
DX: S06.6X0A Traumatic subarachnoid hemorrhage without loss of consciousness, initial encounter (principal); J96.00 Acute respiratory failure, unspecified whether with hypoxia or hypercapnia; N17.9 Acute kidney failure, unspecified; E87.1 Hypo-osmolality and hyponatremia; E87.0 Hyperosmolality and hypernatremia; Z20.822 Contact with and (suspected) exposure to COVID-19; R40.2362 Coma scale, best motor response, obeys commands, at arrival to emergency department; R40.2142 Coma scale, eyes open, spontaneous, at arrival to emergency department; R40.2242 Coma scale, best verbal response, confused conversation, at arrival to emergency department; Z66 Do not resuscitate; E78.5 Hyperlipidemia, unspecified; I50.9 Heart failure, unspecified; I11.0 Hypertensive heart disease with heart failure; M19.90 Unspecified osteoarthritis, unspecified site; K21.9 Gastro-esophageal reflux disease without esophagitis; G35 Multiple sclerosis; F02.80 Dementia in other diseases classified elsewhere, unspecified severity, without behavioral disturbance, psychotic disturbance, mood disturbance, and anxiety; G30.1 Alzheimer's disease with late onset; E83.39 Other disorders of phosphorus metabolism; E11.9 Type 2 diabetes mellitus without complications; E87.6 Hypokalemia; M79.661 Pain in right lower leg; M79.671 Pain in right foot; W05.0XXA Fall from non-moving wheelchair, initial encounter; D64.9 Anemia, unspecified; Y92.129 Unspecified place in nursing home as the place of occurrence of the external cause; Z78.1 Physical restraint status; Z28.21 Immunization not carried out because of patient refusal; I25.2 Old myocardial infarction; Z95.1 Presence of aortocoronary bypass graft; I25.10 Atherosclerotic heart disease of native coronary artery without angina pectoris; Z87.891 Personal history of nicotine dependence; Z79.4 Long term (current) use of insulin; Z79.899 Other long term (current) drug therapy; Z79.82 Long term (current) use of aspirin
CPT/HCPCS: 31500; 36415; 36416; 36600; 51702; 70450; 71045; 72125; 74018; 80048; 80053; 81003; 81015; 82550; 82553; 82805; 83735; 84100; 84146; 84443; 84484; 85025; 85610; 85730; 87086; 93005; 93010; 94002; 94640; 94760; 96365; 96366; 96375; 99292; G0390; J0360; J1815; J2704; J3010; J3480; J7050; J7620; S0028; U0002

== ENCOUNTER 2021-08-21 01:32 | Emergency (ER) | payer MEDICARE ==
[2021-08-21 02:13] LABS: #Eosinphils 0.1 thou/uL (0.0-0.7); #Lymphocytes 2.6 thou/uL (1.20-3.40); #Monocytes 0.9 thou/uL (0.11-0.59); #Neutrophils 3.3 thou/uL (1.40-6.50); %Basophils 0.1 % (0.0-1.0); %Eosinophils 2.1 % (0.0-10.0); %Lymphocytes 37.9 % (21.0-51.0); %Monocytes 12.4 % (0.0-10.0); %Neutrophils 47.6 % (42.0-75.0); Hemoglobin 10.7 g/dL (12.0-16.0); Mean Corpuscular HGB CONC 31.1 g/dL (32.0-36.0); Mean Corpuscular Hemoglobin 27.9 pg (27.0-31.0); Mean Corpuscular Volume 89.6 fL (78.0-98.0); Mean Platelet Volume 6.7 fL (7.4-10.4); Platelet Count 270 thou/uL (130-400); RBC Distribution Width 14.3 % (11.5-14.5); Red Blood Cell (RBC) Count 3.85 mill/uL (4.20-5.40); White Blood Cell (WBC) Count 6.8 thou/uL (4.8-10.8)
[2021-08-21 02:36] LABS: ALT (SGPT) 10 U/L (8-55); AST (SGOT) 13 U/L (5-34); Albumin 3.4 g/dL (3.4-4.8); Alkaline Phosphatase 114 U/L (40-110); Anion Gap 12 mmol/L (10-20); BUN (Urea Nitrogen) 47 mg/dL (9.8-20.1); Bilirubin, Total 0.4 mg/dL (0.2-1.2); Calc. Creatinine Clearance 0 mL/min (70-130); Calcium 8.9 mg/dL (7.8-10.44); Carbon Dioxide 28 mmol/L (23-31); Chloride 103 mmol/L (98-107); Glucose 74 mg/dL (83-110); Protein, Total 6.4 g/dL (5.8-8.1); Sodium 139 mmol/L (136-145)
[2021-08-21 04:38] LABS: Bilirubin Negative (Negative); Blood, Urine Negative (Negative); Clarity Clear (Clear); Glucose, Urine (Dipstick) Normal (Negative); Ketone, Urine Negative (Negative); Leukocyte 250 Leu/uL (Negative); Nitrite Negative (Negative); Protein, Urine (Dipstick) Negative (Neg-Trace); RBC/HPF 0-3 HPF (0-3); Specific Gravity, Urine 1.009 (1.002-1.036); Squamous Epithelial 0-3 HPF (0-3); Urobilinogen Normal mg/dL (Less than 2); pH, Urine 7.5 (5.0-9.0)
[2021-08-21 04:39] LABS: Bacteria/HPF 1+ HPF (None Seen)
== END 2021-08-21 06:20 ==
LOC: ERS 01:32
DX: N39.0 Urinary tract infection, site not specified (principal); I25.2 Old myocardial infarction; E11.9 Type 2 diabetes mellitus without complications; E78.5 Hyperlipidemia, unspecified; I11.0 Hypertensive heart disease with heart failure; I50.9 Heart failure, unspecified; M19.90 Unspecified osteoarthritis, unspecified site; K21.9 Gastro-esophageal reflux disease without esophagitis; M79.89 Other specified soft tissue disorders
CPT/HCPCS: 36415; 70450; 80053; 81015; 85025; 87086; 87186